=== PATIENT | female | born 1935 | race Caucasian/White ===

== ENCOUNTER 2016-12-30 15:21 | Inpatient (IN) | payer MEDICARE, OTHER ==
[~2016-12-30] VITALS: Ht 167.6 cm; Wt 92.0 kg
[~2016-12-30 15:21] MED LIST: ASPI-110 PO; CARB25TA9 PO; DONE10TA7 PO; FENO50TA PO; LEVO125T4 PO; MULT1TAB PO; NAME10TA PO; OMEG100010 PO; SERO25TA PO; VENL75TA PO; VITA2000 PO
[2017-01-02] MEDS ORDERED: BUPIVACAINE LIPOSOME PF 1.3% 20 ML VIAL ONE (09:12)
[2017-01-02] MEDS ORDERED: PROPOFOL 200 MG/20 ML AMP IV ONE (12:00)
[2017-01-02] MEDS ORDERED: ePHEDrine/NS 25 MG/5 ML SYR IV ONE (12:00)
[2017-01-02] MEDS ORDERED: LACTATED RINGER'S 1000 ML INJ 1,000 ML IV ONE (12:00)
[2017-01-02] MEDS ORDERED: POVIDONE IODINE 5% (ANTISEPSIS KIT) 4 APPLICATIONS EACH NARE PRN (12:45)
[2017-01-02] MEDS ORDERED: CHLORHEXIDINE GLUCONATE 2 % 1 PACK (2 CLOTHS) TOPICAL PRN (12:45)
[2017-01-02] MEDS ORDERED: METOPROLOL TARTRATE 25 MG TAB PO PRN (12:45)
[2017-01-02] MEDS ORDERED: ceFAZolin 2 GM PREMIX 50 ML IV SCH (12:45)
[2017-01-02] MEDS ORDERED: LACTATED RINGER'S 1000 ML IV PRN (12:45)
[2017-01-02] MEDS ORDERED: CHLORHEXIDINE GLUCONATE 4% SOLN 120 ML BTL TOPICAL SCH (12:45)
[2017-01-02] MEDS ORDERED: VANCOMYCIN 1000 MG/NS 250 ML (for <70 kg) IV SCH ×2 (12:45)
[2017-01-02] MEDS ORDERED: SODIUM CHLORID 0.9% 500 ML IV PRN (12:45)
[2017-01-02] MEDS ORDERED: INSULIN HUMAN REGULAR 1,000 UNITS/10 ML VIAL SQ PRN (12:45)
[2017-01-02] MEDS ORDERED: GENTAMICIN SULFATE 80 MG/2 ML VIAL ONE ×2 (12:47)
[2017-01-02] MEDS ORDERED: ROPIVACAINE PERI-ARTICULAR INJECTION. P-ARTICULR SCH ×5 (13:00)
[2017-01-02 13:08] VITALS: BP 142/69; PULSE 68; RESP 16; TEMP 98.5; O2SAT 96
[2017-01-02] MEDS ORDERED: ACETAMINOPHEN 1000 MG/100 ML VIAL IV ONE (13:51)
[2017-01-02] MEDS ORDERED: FAMOTIDINE 20 MG/2 ML VIAL ONE (13:51)
[2017-01-02] MEDS: LACTATED RINGER'S 1000 ML INJ 1,000 ML IV SCH (16:52)
[2017-01-02] MEDS ORDERED: DO NOT ADM ANY ANTICOAGULANT DRUGS PRN (16:56)
[2017-01-02] MEDS ORDERED: ALUMINUM/MAGNESIUM/SIMETH 30 ML CUP PO PRN (17:00)
[2017-01-02] MEDS ORDERED: ONDANSETRON HCL 4 MG/2 ML VIAL IVP PRN (17:00)
[2017-01-02] MEDS ORDERED: MORPHINE SULFATE 8 MG/ML INJ IM PRN (17:00)
[2017-01-02] MEDS ORDERED: ZOLPIDEM TARTRATE 5 MG TAB PO PRN (17:00)
[2017-01-02] MEDS ORDERED: ACETAMINOPHEN/HYDROcodone 325 MG/5 MG TAB PO PRN (17:00)
[2017-01-02] MEDS ORDERED: SODIUM CHLORIDE 0.9% FLUSH 5 ML FLUSH IVF PRN (17:00)
[2017-01-02] MEDS: CARBIDOPA/LEVODOPA 25 MG/100 MG TAB PO SCH ×3 (17:00→23:23)
[2017-01-02] MEDS ORDERED: Post-op Orders (for Pharmacy) MISC XX ONE (17:00)
--- NOTE | 2017-01-02 17:00 | HHI.FF ---
Face to Face Verification Diagnosis: (1) Osteoarthritis of right knee Physical Therapy Gait training, Transfer training, bed to chair Knee: Total knee, Protocol: Right, Full weight bearing Right LE Weight Bearing: WB as tolerated Left LE Weight Bearing: WB as tolerated Nursing RN: 3 days/week x 2 weeks Nursing: Dressing changes (clean incision with alcohol and apply dry sterile dressing ) Additional Instructions Pt/INR q Monday and . Call/text results to Yuki AHN [phone] Goal INR 1.5-1.8 I have seen patient Carmen Monaco on 01/02/17. My clinical findings support the need for the requested home health care services because: High risk of falls I certify that my clinical findings support that this patient is homebound because: Post-op weakness Ghassan Burgess MD Jan 02, 2017 17:00
[2017-01-02] MEDS ORDERED: CPMMACHINE (17:02)
[2017-01-02] MEDS ORDERED: WALKER WHEELS/F1 MIS (17:02)
[2017-01-02] MEDS ORDERED: BEDSIDE COMMODE1 MI1 (17:02)
--- NOTE | 2017-01-02 17:05 | HHI.PR ---
Immediate Post Op Note Procedure Date: Jan 02, 2017 Pre Op Diagnosis: R Knee Severe OA Post Op Diagnosis: Same Surgeon: Ghassan Burgess MD Bar Host(s): Yuki Levin PA-C Procedure: R TKR Complications: None Specimen(s) removed: None Estimated blood loss: 50cc Anesthesia: Regional Block, Spinal, Local Drains: Hemovac Tourniquet time (min at mmHg) 60 mins @ 250 mm Hg Patient to: PACU Patient Condition: Good Implant/Devices: SEE IMPLANT LOG (if applicable) Date/Time of Procedure: SEE SURGICAL CARE RECORD Ghassan Burgess MD Jan 02, 2017 17:05
--- NOTE | 2017-01-02 18:15 | RADRPT ---
EXAM DATE/TIME: 01/02/2017 17:25 [place] COMPARISON: No previous studies available for comparison. INDICATIONS : Post op right knee. MEDICAL HISTORY : None. SURGICAL HISTORY : None. ENCOUNTER: Initial ACUITY: 1 day PAIN SCORE: Non-responsive. LOCATION: Right knee. FINDINGS: AP and lateral views of the right knee demonstrate changes consistent with recent total knee arthropl asty with metallic hardware in place in the distal femur and proximal tibia. There is a radiolucent p atellar component. Skin china are present anteriorly. There is soft tissue gas present, as expected . A surgical drain is in place. CONCLUSION: Expected changes following right total knee arthroplasty. Reza Chan MD on January 02, 2017 at 18:12 Board Certified Radiologist. This report was verified electronically.
[2017-01-02 19:02] VITALS: BP 139/64; PULSE 68; RESP 16; TEMP 95.4; O2SAT 96
[2017-01-02] MEDS: ACETAMINOPHEN/HYDROcodone 325 MG/5 MG TAB PO PRN (19:55)
[2017-01-02] MEDS: SODIUM CHLORIDE 0.9% FLUSH 5 ML FLUSH IVF SCH (19:58)
[2017-01-02] MEDS: QUEtiapine FUMARATE 25 MG TAB PO SCH (19:58)
[2017-01-02] MEDS: MEMANTINE HCL 10 MG TAB PO SCH (19:59)
--- NOTE | 2017-01-02 22:14 | PD.CONS ---
HPI Service [facility] Hospitalists Consult Requested By Orthopedic surgery. Reason for Consult Medical management. Primary Care Physician Non-Staff Diagnoses: (1) Osteoarthritis of right knee (2) Parkinson's disease (3) Dementia (4) Hypothyroidism History of Present Illness Ms. Monaco is a pleasant 81 year old female with a history of hypothyroidism, hyperlipidemia, Parkinson's disease who underwent right total knee arthroplasty on 01/02/2017. Hospitalist service was consulted for medical management. While at PACU, patient had a short episode of Atrial fibrillation with RVR per RN. Patient was completely asymptomatic. Patient denies any history of Afib. She is followed by a side seam tender Dr. Ko in the outpatient setting. At the time of this interview, patient denies any cough, chest pain, shortness of breath, fever, chills. No changes in bowel or bladder habits. Review of Systems Except as stated in HPI: all other systems reviewed are Neg Past Family Social History Allergies: Coded Allergies: No Known Allergies (Unverified , 12/30/16) Past Medical History Parkinson's disease Dementia Hypothyroidism Hyperlipidemia Past Surgical History Appendectomy Thyroid surgery Cholecystectomy Family History No family history of Alzheimer's or Parkinson's. Social History Denies using tobacco, alcohol or illicit drugs. Physical Exam Vital Signs Vital Signs Date Time Temp Pulse Resp B/P Pulse Ox O2 Delivery O2 Flow Rate FiO2 01/02/17 19:02 95.4 68 16 139/64 96 01/02/17 18:30 68 12 124/58 98 Nasal Cannula 2 01/02/17 18:15 69 12 139/63 97 Nasal Cannula 2 01/02/17 18:00 70 12 140/56 97 Nasal Cannula 2 01/02/17 17:45 73 19 128/59 96 Nasal Cannula 2 01/02/17 17:30 73 15 140/63 98 Nasal Cannula 2 01/02/17 17:15 74 20 132/62 96 Nasal Cannula 2 01/02/17 17:00 75 17 128/60 96 Nasal Cannula 3 01/02/17 16:56 97.7 74 15 119/56 96 Nasal Cannula 3 01/02/17 13:08 98.5 68 16 142/69 96 Physical Exam GENERAL: This is a well-nourished, well-developed patient, in no apparent distress. SKIN: No rashes, ecchymoses or lesions. Warm and dry. HEAD: Atraumatic. Normocephalic. No temporal or scalp tenderness. EYES: Pupils equal round and reactive. No injection or drainage. ENT: Nose without bleeding, purulent drainage or septal hematoma. Airway patent. NECK: Trachea midline. No lymphadenopathy. Supple, nontender, no meningeal signs. CARDIOVASCULAR: Regular rate and rhythm without murmurs, gallops, or rubs. No JVD. RESPIRATORY: Clear to auscultation. Breath sounds equal bilaterally. No wheezes , rales, or rhonchi. GASTROINTESTINAL: Abdomen soft, non-tender, nondistended. No guarding. MUSCULOSKELETAL: Extremities without clubbing, cyanosis, or edema. s/p right total knee arthroplasty. NEUROLOGICAL: Awake and alert. Cranial nerves II through XII intact. No focal neurological deficits. Normal speech. Laboratory Laboratory Tests Test 01/02/17 01/02/17 13:00 13:08 Blood Type O NEGATIVE O NEGATIVE Antibody Screen NEGATIVE Crossmatch Leukocyte-Reduced Red Blood Cells Blood Bank Comment Imaging Last Impressions Knee X-Ray 01/02/17 1652 Signed Impressions: Service Date/Time: Monday, January 02, 2017 17:25 - CONCLUSION: Expected changes following right total knee arthroplasty. Reza Chan MD Assessment and Plan Assessment and Plan Ms. Monaco is a pleasant 81 year old female with a history of hypothyroidism, hyperlipidemia, Parkinson's disease who underwent right total knee arthroplasty on 01/02/2017. Hospitalist service was consulted for medical management. While at PACU, patient had a short episode of Atrial fibrillation with RVR per RN. Patient was completely asymptomatic. Patient denies any history of Afib. She is followed by a side seam tender Dr. Ko in the outpatient setting. - Right knee osteoarthritis - s/p right total knee arthroplasty. - [place] 5/325mg 1-2 tablets for pain PRN - Milk of Mag, Dulcolax supp PRN for bowel regimen. - Warfarin for DVT prophylaxis. - Possible Afib. - Patient had an episode of Afib in the PACU. - No previous history of Afib. - Will keep patient on Telemetry to detect paroxysmal Afib. - Also advised patient to discuss with her Cook Frozen Dessert. - If documented, patient will likely benefit from anti-coagulation meds such as Apixaban. - Parkinson's disease - Dementia - Continue Donepezil 10mg Qday. - Continue Memantine 10mg BID, Carbidopa-Levodopa 25-100 mg - probably Q8hrs not Q3hrs. - Will verify dosage with patient/ or patient's pharmacy. - Hypothyroidism - Continue Levothyroxine 125 mcg QAM. - Hyperlipidemia - continue Fenofibrate 145 mg PO Qday. Full code. Warfarin. Thank you for the consult. We will continue to follow this patient with you. Reinaldo Canales DO Jan 02, 2017 22:14
[2017-01-03] VITALS (9 sets, daily range): BP systolic 98–145; BP diastolic 46–78; PULSE 70–85; RESP 17–18; TEMP 96.7–98.7; O2SAT 92–99
[2017-01-03] MEDS ORDERED: BISACODYL 10 MG SUPP RECTAL PRN (01:00)
[2017-01-03] MEDS ORDERED: MAGNESIUM HYDROXIDE SUSP 30 ML CUP PO PRN (01:00)
[2017-01-03] MEDS: ACETAMINOPHEN/HYDROcodone 325 MG/5 MG TAB PO PRN ×4 (01:51→19:48)
[2017-01-03] MEDS: LACTATED RINGER'S 1000 ML INJ 1,000 ML IV SCH ×2 (05:22→17:43)
[2017-01-03] MEDS: CARBIDOPA/LEVODOPA 25 MG/100 MG TAB PO SCH ×3 (05:39→22:07)
[2017-01-03] MEDS: LEVOTHYROXINE SODIUM 125 MCG TAB PO SCH (05:39)
[2017-01-03 06:27] LABS: INTERNATIONAL NORMALIZED RATIO 1.1 RATIO; PROTHROMBIN TIME - PATIENT 12.5 SEC (9.8-11.6)
--- NOTE | 2017-01-03 07:18 | PD.ORT.PN ---
Subjective Subjective Remarks POD#1 R TKR C/O hallucinations last night;probably secondary from sleep depervation No sob;no chest pain Seen with Objective Vitals Vital Signs Date Time Temp Pulse Resp B/P Pulse Ox O2 Delivery O2 Flow Rate FiO2 01/03/17 04:07 97.2 73 18 119/55 95 01/03/17 00:40 98.3 72 17 98/46 94 01/02/17 19:02 95.4 68 16 139/64 96 01/02/17 18:30 68 12 124/58 98 Nasal Cannula 2 01/02/17 18:15 69 12 139/63 97 Nasal Cannula 2 01/02/17 18:00 70 12 140/56 97 Nasal Cannula 2 01/02/17 17:45 73 19 128/59 96 Nasal Cannula 2 01/02/17 17:30 73 15 140/63 98 Nasal Cannula 2 01/02/17 17:15 74 20 132/62 96 Nasal Cannula 2 01/02/17 17:00 75 17 128/60 96 Nasal Cannula 3 01/02/17 16:56 97.7 74 15 119/56 96 Nasal Cannula 3 01/02/17 13:08 98.5 68 16 142/69 96 I/O 01/02/17 01/02/17 01/02/17 01/03/17 01/03/17 01/03/17 07:00 15:00 23:00 07:00 15:00 23:00 Intake Total 1480 ml 480 ml Output Total 300 ml Balance 1180 ml 480 ml Intake Oral 480 ml 480 ml Other 1000 ml Output Urine Total 250 ml Estimated Blood Loss 50 ml # Voids 1 2 # Bowel Movements 0 0 Other Results Laboratory Tests Test 01/03/17 06:08 Prothrombin Time 12.5 SEC (9.8-11.6) Prothromb Time International 1.1 RATIO Ratio Imaging Last 24 hours Impressions Knee X-Ray 01/02/17 1652 Signed Impressions: Service Date/Time: Monday, January 02, 2017 17:25 - CONCLUSION: Expected changes following right total knee arthroplasty. Reza Chan MD Objective Remarks Dressings dry N/V intact Neg gwen's;no calf tenderness Assessment & Plan Assessment and Plan Patient alert this AM PT,Rehab Coumadin,TEDS,Sequentials for DVT prophylaxsis Ortho stable Ghassan Burgess MD Jan 03, 2017 07:18
[2017-01-03] MEDS: SODIUM CHLORIDE 0.9% FLUSH 5 ML FLUSH IVF SCH ×2 (09:00→19:48)
[2017-01-03] MEDS: VENLAFAXINE HCL XR 75 MG CAP PO SCH (09:02)
[2017-01-03] MEDS: FENOFIBRATE 145 MG TAB PO SCH (09:02)
[2017-01-03] MEDS: MEMANTINE HCL 10 MG TAB PO SCH ×2 (09:02→19:48)
[2017-01-03] MEDS: DONEPEZIL HCL 5 MG TAB PO SCH (09:02)
--- NOTE | 2017-01-03 12:50 | MP ---
cc: VINEET BURGESS M.D., MD,LOPEZ GRAHAM MD,CHAR DATE OF SURGERY 01/02/2017 PREOPERATIVE DIAGNOSIS Right knee severe tricompartmental osteoarthritis. POSTOPERATIVE DIAGNOSIS Right knee severe tricompartmental osteoarthritis. PROCEDURE Right total knee arthroplasty - cemented Biomet Vanguard. SURGEON Gianni Burgess MD AIRCRAFT SERVICER Yuki Levin PA-C ESTIMATED BLOOD LOSS 50 cc SPECIMEN None. COMPLICATIONS None. ANESTHESIA Spinal, regional abductor canal block, local intracapsular anesthesia DRAINS Two. TOURNIQUET TIME 60 minutes at 20 mmHg. CONDITION Stable. PLAN OF ACTIVITY. As per orders. PROCEDURE My administrative assistant coordinator Yuki Levin PA-C, was present for the entire surgical case. She was medically necessary for the entire case because of the complexity of the case and to facilitate the performance of the procedure. The ELECTRICAL TROUBLESHOOTER at the back table not of the skill set for this case to manipulate the instruments e.g. the multiple different soft tissue retractors, trial implants, permanent implants including bone cement. The patient was brought into the operating room and had satisfactory anesthesia by the Department of Anesthesia. The right lower extremity was prepped and draped in the usual sterile manner. The extremity was exsanguinated by elevation and the tourniquet inflated to 250 mmHg. Anterior medial exposure of the knee was made. All bleeders were then coagulated. Dissection continued through the subcutaneous tissue. On Inspection of the knee joint, the patient was found to have severe tricompartmental osteoarthritis. The patient had significant ridges and "grooves" involving the patellofemoral compartment. The remaining portion of the medial and lateral meniscus were removed. Osteophytes off the patella were removed. The remaining part of the medial and lateral meniscus were removed. The remaining portion of anterior cruciate ligament was removed. Prepatellar fat pad was excised. Using the Biomet total knee arthroplasty Vanguard system, IM guide was used on the distal femur to accept a 62.5-mm right femoral component. Extramedullary guide was used for the tibia to accept a 71-mm tibial component. The undersurface of the patella was removed to accept the 31-mm, three-pronged patellar prosthesis. A 12-mm insert was used. The patient found to have excellent balance with flexion and extension. All trial components were removed and preparation for cementing was made. The knee was injected with 100 cc of local anesthesia provided by the Pharmacy Department. The knee was prepared for cementing. Two packages of [place] bone cement by [employer] was used. First the tibial component was cemented which is a 71-mm tibial component, followed by the femoral component which was a 62.5-mm femoral component and then the patella was cemented which is a 31-mm three-pronged patellar prosthesis. The bone cement was allowed to harden for 13 minutes. All excess bone cement was removed. A 12 x 31 mm polyethylene plastic was assembled onto the tibial tray with the appropriate clipping mechanism. The tourniquet was deflated. All bleeders were then coagulated. The wound was irrigated with 4000 cc of sterile saline antibiotic solution. The wound was closed over two Hemovac drains, hooked up to an Autovac type system. The wound was closed in multiple layers using #2 Ticron suture for the capsule, 0 Vicryl and 2-0 Vicryl. The skin was approximated with stainless steel china. Xeroform gauze and sterile dressing were applied. The patient tolerated the procedure well and arrived in the recovery room in stable and satisfactory condition. MD SHELLY Palmer/KEELEY /4:54 PM /12:36 PM
[2017-01-03] MEDS ORDERED: WARFARIN SOD 5 MG TAB PO SCH (16:00)
--- NOTE | 2017-01-03 19:27 | HHI.PR ---
Subjective Remarks Follow up for right knee osteoarthritis, Parkinson's. Patient is s/p right TKA. Currently doing well. However, she could not get much sleep last night. Denies any chest pain, shortness of breath, fever, chills. Telemetry shows no evidence of Afib. Objective Vitals Vital Signs Date Time Temp Pulse Resp B/P Pulse Ox O2 Delivery O2 Flow Rate FiO2 01/03/17 16:00 98.3 78 18 128/62 96 01/03/17 12:51 80 01/03/17 12:00 97.0 70 18 107/58 99 01/03/17 09:51 96 21 01/03/17 08:00 98.7 85 18 145/73 95 01/03/17 04:07 97.2 73 18 119/55 95 01/03/17 00:40 98.3 72 17 98/46 94 I/O 01/02/17 01/02/17 01/02/17 01/03/17 01/03/17 01/03/17 06:59 14:59 22:59 06:59 14:59 22:59 Intake Total 1480 ml 480 ml 600 ml Output Total 300 ml Balance 1180 ml 480 ml 600 ml Intake Oral 480 ml 480 ml 600 ml Other 1000 ml Output Urine Total 250 ml Estimated Blood Loss 50 ml # Voids 1 2 2 # Bowel Movements 0 0 0 Imaging Last Impressions Knee X-Ray 01/02/17 1652 Signed Impressions: Service Date/Time: Monday, January 02, 2017 17:25 - CONCLUSION: Expected changes following right total knee arthroplasty. Reza Chan MD Objective Remarks GENERAL: Alert, NAD. SKIN: Warm and dry. HEAD: Normocephalic. EYES: No scleral icterus. No injection or drainage. NECK: Supple, trachea midline. No JVD or lymphadenopathy. CARDIOVASCULAR: Regular rate and rhythm without murmurs, gallops, or rubs. RESPIRATORY: Breath sounds equal bilaterally. No accessory muscle use. GASTROINTESTINAL: Abdomen soft, non-tender, nondistended. MUSCULOSKELETAL: No cyanosis, or edema. s/p right TKA. BACK: Nontender without obvious deformity. No CVA tenderness. Procedures 01/02/2017 Right Total Knee Arthroplasty. A/P Problem List: (1) Osteoarthritis of right knee ICD Code: M17.11 Status: Acute (2) Parkinson's disease ICD Code: G20 Status: Acute (3) Dementia ICD Code: F03.90 Status: Acute (4) Hypothyroidism ICD Code: E03.9 Status: Acute Assessment and Plan Ms. Monaco is a pleasant 81 year old female with a history of hypothyroidism, hyperlipidemia, Parkinson's disease who underwent right total knee arthroplasty on 01/02/2017. Hospitalist service was consulted for medical management. While at PACU, patient had a short episode of Atrial fibrillation with RVR per RN. Patient was completely asymptomatic. Patient denies any history of Afib. She is followed by a skin grader Dr. Ko in the outpatient setting. - Right knee osteoarthritis - s/p right total knee arthroplasty. - [place] 5/325mg 1-2 tablets for pain PRN - Milk of Mag, Dulcolax supp PRN for bowel regimen. - Warfarin for DVT prophylaxis. - Suspected Afib. - Patient had an episode of Afib in the PACU. - No previous history of Afib. - No evidence of Afib on telemetry. - Also advised patient to discuss with her Checker/Stocker in the outpatient setting. - Parkinson's disease - Dementia - Continue Donepezil 10mg Qday. - Continue Memantine 10mg BID, Carbidopa-Levodopa 25-100 mg - Q8hrs. - Hypothyroidism - Continue Levothyroxine 125 mcg QAM. - Hyperlipidemia - continue Fenofibrate 145 mg PO Qday. Full code. Warfarin. Reinaldo Canales DO Jan 03, 2017 19:27
[2017-01-03] MEDS: QUEtiapine FUMARATE 25 MG TAB PO SCH (19:47)
[2017-01-04 04:29] VITALS: BP 125/59; PULSE 76; RESP 18; TEMP 97.4; O2SAT 95
[2017-01-04 05:49] LABS: HEMATOCRIT 31.1 % (35.0-46.0); REVIEW FLAG FINAL
[2017-01-04 05:50] LABS: INTERNATIONAL NORMALIZED RATIO 1.3 RATIO; PROTHROMBIN TIME - PATIENT 14.4 SEC (9.8-11.6)
[2017-01-04] MEDS: CARBIDOPA/LEVODOPA 25 MG/100 MG TAB PO SCH (06:18)
[2017-01-04] MEDS: LEVOTHYROXINE SODIUM 125 MCG TAB PO SCH (06:18)
[2017-01-04] MEDS: ACETAMINOPHEN/HYDROcodone 325 MG/5 MG TAB PO PRN ×2 (06:19→10:22)
[2017-01-04 07:49] VITALS: BP 109/56; PULSE 82; RESP 18; TEMP 96.4; O2SAT 96
--- NOTE | 2017-01-04 07:51 | HHI.PR ---
Subjective Remarks Follow up for right knee osteoarthritis, Parkinson's, s/p right TKA. Patient seen and examined sitting in wheelchair in no apparent distress, at bedside. Patient denies any new acute complaints overnight. Denies any recent fever, chills, headache, chest pain, cough, shortness of breath, abdominal pain , nausea, vomiting, diarrhea, or dysuria. Plan is to go to [facility] inpatient rehab today. Afebrile. Vitals stable. Telemetry showing no evidence of atrial fibrillation. Objective Vitals Vital Signs Date Time Temp Pulse Resp B/P Pulse Ox O2 Delivery O2 Flow Rate FiO2 01/04/17 04:29 97.4 76 18 125/59 95 01/03/17 23:42 96.7 76 17 111/50 92 01/03/17 19:39 96.7 80 18 142/78 98 01/03/17 16:00 98.3 78 18 128/62 96 01/03/17 12:51 80 01/03/17 12:00 97.0 70 18 107/58 99 01/03/17 09:51 96 21 01/03/17 08:00 98.7 85 18 145/73 95 I/O 01/03/17 01/03/17 01/03/17 01/04/17 01/04/17 01/04/17 07:00 15:00 23:00 07:00 15:00 23:00 Intake Total 480 ml 600 ml 360 ml 240 ml Balance 480 ml 600 ml 360 ml 240 ml Intake Oral 480 ml 600 ml 360 ml 240 ml # Voids 2 2 3 1 # Bowel Movements 0 0 0 0 Result Diagram: 01/04/17 0517 Imaging Last Impressions Knee X-Ray 01/02/17 1652 Signed Impressions: Service Date/Time: Monday, January 02, 2017 17:25 - CONCLUSION: Expected changes following right total knee arthroplasty. Reza Chan MD Objective Remarks GENERAL: Alert, NAD. SKIN: Warm and dry. HEAD: Normocephalic. EYES: No scleral icterus. No injection or drainage. NECK: Supple, trachea midline. No JVD or lymphadenopathy. CARDIOVASCULAR: Regular rate and rhythm without murmurs, gallops, or rubs. RESPIRATORY: Breath sounds equal bilaterally. No accessory muscle use. GASTROINTESTINAL: Abdomen soft, non-tender, nondistended. MUSCULOSKELETAL: No cyanosis, or edema. s/p right TKA. BACK: Nontender without obvious deformity. No CVA tenderness. Procedures 01/02/2017 Right Total Knee Arthroplasty. A/P Problem List: (1) Osteoarthritis of right knee ICD Code: M17.11 Status: Chronic (2) Parkinson's disease ICD Code: G20 Status: Chronic (3) Dementia ICD Code: F03.90 Status: Chronic (4) Hypothyroidism ICD Code: E03.9 Status: Chronic Assessment and Plan Ms. Monaco is a pleasant 81 year old female with a history of hypothyroidism, hyperlipidemia, Parkinson's disease who underwent right total knee arthroplasty on 01/02/2017. Hospitalist service was consulted for medical management. While at PACU, patient had a short episode of Atrial fibrillation with RVR per RN. Patient was completely asymptomatic. Patient denies any history of Afib. She is followed by a environmental construction engineer Dr. Ko in the outpatient setting. Right knee osteoarthritis - s/p right total knee arthroplasty. - [place] 5/325mg 1-2 tablets for pain PRN - Milk of Mag, Dulcolax supp PRN for bowel regimen. - Warfarin for DVT prophylaxis. Suspected Afib. - Patient had an episode of Afib in the PACU. - No previous history of Afib. - No evidence of Afib on telemetry. - Also advised patient to discuss with her Cocktail Waitress in the outpatient setting. Parkinson's disease Dementia - Continue Donepezil 10mg Qday. - Continue Memantine 10mg BID, Carbidopa-Levodopa 25-100 mg - Q8hrs. Hypothyroidism: Continue Levothyroxine 125 mcg QAM. Hyperlipidemia: Continue Fenofibrate 145 mg PO Qday. DVT Prophylaxis: Warfarin. Full code. Discharge Planning [facility]. Reinaldo Canales DO Jan 04, 2017 07:51 Aida Adorno Jan 04, 2017 12:22
--- NOTE | 2017-01-04 07:52 | PD.ORT.PN ---
Subjective Subjective Remarks pt sleepy complains of post op knee pain Objective Vitals Vital Signs Date Time Temp Pulse Resp B/P Pulse Ox O2 Delivery O2 Flow Rate FiO2 01/04/17 04:29 97.4 76 18 125/59 95 01/03/17 23:42 96.7 76 17 111/50 92 01/03/17 19:39 96.7 80 18 142/78 98 01/03/17 16:00 98.3 78 18 128/62 96 01/03/17 12:51 80 01/03/17 12:00 97.0 70 18 107/58 99 01/03/17 09:51 96 21 01/03/17 08:00 98.7 85 18 145/73 95 I/O 01/03/17 01/03/17 01/03/17 01/04/17 01/04/17 01/04/17 07:00 15:00 23:00 07:00 15:00 23:00 Intake Total 480 ml 600 ml 360 ml 240 ml Balance 480 ml 600 ml 360 ml 240 ml Intake Oral 480 ml 600 ml 360 ml 240 ml # Voids 2 2 3 1 # Bowel Movements 0 0 0 0 Result Diagram: 01/04/1717 Other Results Laboratory Tests Test 01/04/17 05:17 Prothrombin Time 14.4 SEC (9.8-11.6) Prothromb Time International 1.3 RATIO Ratio Imaging Last 24 hours Impressions Knee X-Ray 01/02/17 1652 Signed Impressions: Service Date/Time: Monday, January 02, 2017 17:25 - CONCLUSION: Expected changes following right total knee arthroplasty. Reza Chan MD Objective Remarks in room right knee dressing dry and intact +NVI Neg gwen's;no calf tenderness Assessment & Plan Assessment and Plan POD # 2 s/p R TKA discussion with patient and that patient may need to go to [facility] instead of home cardiology following due to A. Fib during surgery currently has monitor on questioning carbidopa dosage and why q8hrs not q3hrs - defer to medical physician on dosing PT,Rehab Coumadin,TEDS,Sequentials for DVT proph. anticipate d/c tomorrow, most likely [facility] unless patient can safely go home with [facility] Ortho stable Yuki Levin Jan 04, 2017 07:52
[2017-01-04] MEDS: MEMANTINE HCL 10 MG TAB PO SCH (08:39)
[2017-01-04] MEDS: VENLAFAXINE HCL XR 75 MG CAP PO SCH (08:39)
[2017-01-04] MEDS: DONEPEZIL HCL 5 MG TAB PO SCH (08:40)
[2017-01-04] MEDS: FENOFIBRATE 145 MG TAB PO SCH (08:40)
[2017-01-04] MEDS ORDERED: SINE25TA PO ×3 (08:51→13:19)
[2017-01-04] MEDS ORDERED: COUM1TAB PO (09:01)
[2017-01-04] MEDS ORDERED: NORC5TAB PO (12:18)
--- NOTE | 2017-01-09 10:05 | HHI.DS ---
Discharge Summary Admission Date Jan 02, 2017 at 12:10 Discharge Date: Jan 04, 2017 Admitting Diagnosis Right knee osteoarthritis Diagnosis: (1) Osteoarthritis of right knee Diagnosis: Principal Procedures R TKA Brief History This is a 81 year old female patient who presents with the following history. Patient has had bilateral knee pain for some years. She has tried assistive ambulation, Meloxicam anti-inflammatory, intra-articular steroid injections, bracing, therapy etc. Patient was reluctant to proceed forward with surgical intervention with her history of Parkinson's Disease and Dementia. Her knee pain progressed to the point that she was hardly able to ambulate and decided it was necessary that she proceed forward with surgical intervention. Imaging x-rays of the right knee show severe tri compartment osteoarthritis with joint space narrowing PE at Discharge in room right knee dressing dry and intact +NVI Neg gwen's;no calf tenderness Hospital Course Patient underwent satisfactory anaesthesia by the dept of anaesthesia which consisted of regional and local anaesthsia. She underwent right total knee arthroplasty on the date of admission. She did go into A. Fib during the procedure and was placed on a heart monitor for 24 hours after her procedure and was followed by cardiology. She did well with her right knee following the procedure. She was treated with low dose coumadin night before procedure and will continue with low dose coumadin for four weeks post operatively to try and prevent DVT. She was started with physical therapy full weight bearing and CPM machine on pod #1. She was also treated with knee high TEDs and sequentials during her stay. She was followed by medical for further evaluation of medical co-morbidities. She progressed well and was discharged to inpatient rehab for further nursing and therapy on pod #2 in stable condition. Pt Condition on Discharge: Stable Discharge Disposition: Rehab Inpatient Discharge Instructions Diet Instructions: Coumadin (Warfarin) Diet Activities You Can Perform: Weight Bearing as Yuki Cason Jan 09, 2017 10:05
[2017-01-09] MEDS ORDERED: TRANSPORT CHAIR1 MIS (13:39)
[2017-01-11] MEDS ORDERED: HYDR-3516 PO (08:48)
[2017-01-11] MEDS ORDERED: VITA1000 PO (09:46)
[2017-01-11] MEDS ORDERED: NAME10TA PO (09:46)
[2017-01-11] MEDS ORDERED: LEVA250T14 PO (09:46)
[2017-01-11] MEDS ORDERED: AMLO5 PO (09:46)
[2017-01-11] MEDS ORDERED: ARIC5TAB2 PO (09:46)
[2017-01-11] MEDS ORDERED: VENL75XR PO (09:46)
[2017-01-11] MEDS ORDERED: LEVO.125 PO (09:46)
[2017-01-11] MEDS ORDERED: QUET1TAB7 PO (09:46)
[2017-01-11] MEDS ORDERED: ACET1TAB86 PO (09:46)
[2017-01-11] MEDS ORDERED: COUM3TAB PO (09:46)
[2017-01-11] MEDS ORDERED: FENO145T2 PO (09:46)
[2017-01-11] MEDS ORDERED: CARB25TA9 PO (09:46)
[2017-01-11] MEDS ORDERED: SENN1TAB PO (09:46)
[2017-01-11] MEDS ORDERED: GNP5TAB6 PO (09:46)
== END 2017-01-04 11:11 | DRG 470 ==
LOC: HSDI 01-02 12:10 → N06A 01-02 18:45
PROVIDERS: ADMIT Orthopaedic Surgery Orthopaedic Surgery of the Spine; ATTEND Orthopaedic Surgery Orthopaedic Surgery of the Spine
PROC: 3E0T3CZ (ICD-10-PCS; 2017-01-02)
PROC: 0SRC0J9 Replacement of Right Knee Joint with Synthetic Substitute, Cemented, Open Approach (ICD-10-PCS; principal; 2017-01-02 14:34)
DX: M17.11 Unilateral primary osteoarthritis, right knee (principal); G20 Parkinson's disease; F02.80 Dementia in other diseases classified elsewhere, unspecified severity, without behavioral disturbance, psychotic disturbance, mood disturbance, and anxiety; R44.3 Hallucinations, unspecified; E03.9 Hypothyroidism, unspecified; E78.5 Hyperlipidemia, unspecified; I48.0 Paroxysmal atrial fibrillation; Z72.820 Sleep deprivation
CPT/HCPCS: 73560; 85014; 85018; 85610; 86850; 86900; 86901; 86920; 94150; C1776; C9290; J0131; J0171; J0690; J0735; J1580; J1885; J2795; J3010; J3370; J7050; J7120; L1830

== ENCOUNTER 2018-04-24 14:06 | Observation (INO) ==
[2018-04-24] MEDS ORDERED: Sodium Chlor 0.9% Inj 500 ML IV.SIG ONE (14:20)
--- NOTE | 2018-04-24 14:55 | ED ---
HPI General Chief Complaint: Altered Mental Status Stated Complaint: Psych Eval/VCSO Time Seen by Provider: 04/24/18 14:08 Source: patient and RN notes reviewed Mode of arrival: EMS Limitations: altered mental status History of Present Illness HPI narrative: 82-year-old female presents to the emergency department via EMS under [place] act by local police. According to EMS, she fell out of bed last night. She got up sleeping on the floor during the night. She has been confused and told her that she wanted a gun to kill herself. Please were called and she was placed under a [place] act. The patient is confused. She is alert and oriented to person only. The patient screams a few manipulate her right wrist. I did speak to the who states that she has been way out of touch with reality and confused for the past 2-3 days. He states that she is normally slightly confused, but is been much worse than normal. He suspects that she has a UTI. He states that she was confused like this a couple years ago was diagnosed with a UTI and osteomyelitis of her foot. She underwent surgery. He also states that she was admitted to [facility] in June 2017 for pneumonia and had a 16-day stay. She does have history of dementia/Alzheimer's and Parkinson's disease. He states that she did fall out of bed last night. He tried to get her back into bed but could not so she wound up sleeping on the floor. He also states that she had a fall couple of days ago where she injured her right arm. Moderate severity. MD complaint: Reports altered mental status and confusion Onset (ago): day(s) (2-3) Timing confirmed by: spouse Severity: moderate Consistency of symptoms: constant Context: Reports unknown Associated symptoms: Reports denies other symptoms Treatments prior to arrival: Reports glucose Related Data Home Medications Medication Instructions Recorded Confirmed aspirin [Ecotrin Low Strength] 81 mg PO QPM 04/24/18 04/24/18 carbidopa-levodopa [Sinemet CR] 1 tab PO Q8H 04/24/18 04/24/18 cholecalciferol (vitamin D3) 2,000 unit PO DAILY 04/24/18 04/24/18 [Vitamin D3] d-mannose 1 tsp PO BID 04/24/18 04/24/18 fenofibrate nanocrystallized 145 mg PO DAILY 04/24/18 04/24/18 gabapentin 100 mg PO TID 04/24/18 04/24/18 levothyroxine 125 mcg PO DAILY 04/24/18 04/24/18 memantine-donepezil [Namzaric] 1 cap PO QPM 04/24/18 04/24/18 lrjuwlhc-zlz-ZL-lycopen-lutein 1 tab PO QPM 04/24/18 04/24/18 [Centrum Silver] oxybutynin chloride 10 mg PO DAILY 04/24/18 04/24/18 quetiapine [Seroquel] 50 mg PO HS 04/24/18 04/24/18 sennosides-docusate sodium 1 tab PO DAILY 04/24/18 04/24/18 [Senna-S] venlafaxine 150 mg PO HS 04/24/18 04/24/18 Allergies Allergy/AdvReac Type Severity Reaction Status Date / Time No Known Allergies Allergy Verified 04/24/18 14:36 Review of Systems ROS: all other systems reviewed are negative PMFSH Social History Social History Substance History: Unable to Obtain Smoking Status: Unknown if ever smoked How Often Do You Have a Drink Containing Alcohol: Unable to Obtain Recent Travel in [facility] within the Last 8 Weeks: No Recent Out of Country Travel within the Last 8 Weeks: No Immunization History Tetanus Immunization: Unable to Assess Exam Narrative Exam Narrative: GENERAL: Well-nourished, well-developed elderly patient, afebrile. SKIN: Focused skin assessment warm/dry. HEAD: Normocephalic. Atraumatic EYES: No scleral icterus. No injection or drainage. NECK: Supple, trachea midline. No JVD or lymphadenopathy. CARDIOVASCULAR: Regular rate and rhythm without murmurs, gallops, or rubs. RESPIRATORY: Breath sounds equal bilaterally. No accessory muscle use. Lung sounds are clear to auscultation GASTROINTESTINAL: Abdomen soft, non-tender, nondistended. MUSCULOSKELETAL: No cyanosis, or edema. Patient screams when you palpate her right wrist. No other bony point tenderness. Patient moves all extremities. She does not follow commands. BACK: Nontender without obvious deformity. No CVA tenderness. Course Initial Documented Vital Signs Temperature 98.0 F 04/24/18 14:32 Pulse Rate 72 04/24/18 14:32 Respiratory Rate 20 04/24/18 14:32 Blood Pressure 132/95 H 04/24/18 14:32 Pulse Oximetry 99 04/24/18 14:32 Last Documented Vital Signs Temperature 98.0 F 04/24/18 14:32 Pulse Rate 84 04/24/18 17:51 Respiratory Rate 16 04/24/18 17:51 Blood Pressure 170/65 H 04/24/18 17:51 Pulse Oximetry 96 04/24/18 17:51 Medical Decision Making MDM Narrative Medical decision making narrative: 82-year-old female presents to the emergency department under [place] act by local police. Patient is altered on my exam. According to her , she is more confused than normal. Patient is agitated , combative, unable to get IV access due to this. Patient is given Ativan 1 mg IM. IV access is obtained. EKG, CBC, CMP, TSH, CK, troponin, lactic acid, PTT , PT/INR, UA, alcohol level are ordered and pending. Patient is given normal saline 500 male bolus. X-ray of the chest, right wrist, right forearm are ordered and pending. CT of the brain and cervical spine are ordered and pending. EKG shows sinus rhythm, heart rate 89, no acute ST changes. CBC shows no acute abnormality. CMP shows hyperkalemia 8.4, normal BUN and creatinine. TSH is 0.429. CK is 417. Troponin is less than 0.02. Lactic acid is 2.0. PTT is 24.4. Pt/INR is 10.9/1.1. UA is negative for acute infection. Alcohol level is less than 3. Chest x-ray shows no acute intrathoracic disease. X-ray of the right wrist shows no acute fracture or joint dislocation. X-ray of the right forearm is unremarkable. CT of the brain shows no acute intracranial abnormality. CT of the cervical spine shows degenerative changes without fracture/subluxation. Stat potassium is ordered and pending. Repeat potassium is 3.5. Upon receiving new potassium level, clinical lab specialist called and stated the first potassium was put in error and it was actually 3.7. qa tech stated he would change result to 3.7. Hospitalist is paged for admission. Dr. Mathis accepted admission. Medical Screen Exam Complete: Yes Emergency Medical Condition: Yes Differential Diagnosis Differential Diagnosis: UTI versus sepsis versus pneumonia versus intracranial abnormality versus electrolyte abnormality versus dementia Medical Records Medical records reviewed: Yes I reviewed the patient's medical records. Lab Data Result diagrams: 10/09/18 15:45 04/24/18 18:20 Lab Results 04/24/18 04/24/18 04/24/18 Range/Units 15:45 15:45 15:45 WBC 9.3 (4.0-11.0) th/mm3 RBC 4.46 (4.00-5.30) mil/mm3 Hgb 14.4 (11.6-15.3) gm/dL Hct 43.7 (35.0-46.0) % MCV 98.0 (80.0-100.0) fL MCH 32.2 (27.0-34.0) pg MCHC 32.9 (32.0-36.0) % RDW 13.1 (11.6-17.2) % Plt Count 260 (150-450) th/mm3 MPV 9.2 (7.0-11.0) fL Neut % (Auto) 73.6 H (16.0-70.0) % Lymph % (Auto) 15.3 (9.0-44.0) % Clinch % (Auto) 10.6 H (0.0-8.0) % Eos % (Auto) 0.3 (0.0-4.0) % Baso % (Auto) 0.2 (0.0-2.0) % Neut # (Auto) 6.9 (1.8-7.7) th/mm3 Lymph # (Auto) 1.4 (1.0-4.8) th/mm3 Clinch # (Auto) 1.0 H (0.0-0.9) th/mm3 Eos # (Auto) 0.0 (0.0-0.4) th/mm3 Baso # (Auto) 0.0 (0.0-0.2) th/mm3 WBC Differential . Differential Comment Auto diff final PT 10.9 (9.8-11.6) sec INR 1.1 Ratio APTT 24.4 (24.3-30.1) sec Sodium (136-145) meq/L Potassium (3.5-5.1) meq/L Chloride (98-107) meq/L Carbon Dioxide (21.0-32.0) meq/L Anion Gap (5-15) meq/L BUN (7-18) mg/dL Creatinine (0.50-1.00) mg/dL Estimated GFR (>89) mL/min Random Glucose (74-106) mg/dL Lactic Acid 2.0 (0.4-2.0) mmol/L Calcium (8.5-10.1) mg/dL Total Bilirubin (0.2-1.0) mg/dL AST (15-37) U/L ALT (10-53) U/L Alkaline Phosphatase (45-117) U/L Total Creatine Kinase (26-192) U/L CK-MB (CK-2) (0.5-3.6) ng/mL CK-MB (CK-2) % (0.0-4.0) % Troponin I (0.02-0.05) ng/mL Total Protein (6.4-8.2) g/dL Albumin (3.4-5.0) g/dL TSH (0.358-3.740) uIU/mL Urine Color (Yellw/Straw) Urine Clarity (Clear) Urine pH (5.0-8.5) Ur Specific [place] (1.002-1.035) Urine Protein (Neg-Trace) mg/dL Urine Glucose (UA) (Negative) mg/dL Urine Ketones (Negative) mg/dL Urine Occult Blood (Negative) Urine Nitrate (Negative) Urine Bilirubin (Negative) Urine Urobilinogen (Less than 2) mg/dL Ur Leukocyte Esterase (Negative) Urine RBC (0-3) /hpf Urine WBC (0-5) /hpf Urine Mucus (Occasional) /lpf Micro UA Comment Ur Microscopic Review Urine Culture Comments Serum Alcohol (0-5) mg/dL 04/24/18 04/24/18 04/24/18 Range/Units 16:00 17:00 18:20 WBC (4.0-11.0) th/mm3 RBC (4.00-5.30) mil/mm3 Hgb (11.6-15.3) gm/dL Hct (35.0-46.0) % MCV (80.0-100.0) fL MCH (27.0-34.0) pg MCHC (32.0-36.0) % RDW (11.6-17.2) % Plt Count (150-450) th/mm3 MPV (7.0-11.0) fL Neut % (Auto) (16.0-70.0) % Lymph % (Auto) (9.0-44.0) % Clinch % (Auto) (0.0-8.0) % Eos % (Auto) (0.0-4.0) % Baso % (Auto) (0.0-2.0) % Neut # (Auto) (1.8-7.7) th/mm3 Lymph # (Auto) (1.0-4.8) th/mm3 Clinch # (Auto) (0.0-0.9) th/mm3 Eos # (Auto) (0.0-0.4) th/mm3 Baso # (Auto) (0.0-0.2) th/mm3 WBC Differential Differential Comment PT (9.8-11.6) sec INR Ratio APTT (24.3-30.1) sec Sodium 138 (136-145) meq/L Potassium 3.7 3.5 (3.5-5.1) meq/L Chloride 112 H (98-107) meq/L Carbon Dioxide 21.0 (21.0-32.0) meq/L Anion Gap 5 (5-15) meq/L BUN 12 (7-18) mg/dL Creatinine 0.74 (0.50-1.00) mg/dL Estimated GFR 75 L (>89) mL/min Random Glucose 82 (74-106) mg/dL Lactic Acid (0.4-2.0) mmol/L Calcium 7.9 L (8.5-10.1) mg/dL Total Bilirubin 0.8 (0.2-1.0) mg/dL AST 28 (15-37) U/L ALT 24 (10-53) U/L Alkaline Phosphatase 67 (45-117) U/L Total Creatine Kinase 417 H (26-192) U/L CK-MB (CK-2) 1.3 (0.5-3.6) ng/mL CK-MB (CK-2) % 0.3 (0.0-4.0) % Troponin I Less than 0.02 L (0.02-0.05) ng/mL Total Protein 7.4 (6.4-8.2) g/dL Albumin 2.9 L (3.4-5.0) g/dL TSH 0.429 (0.358-3.740) uIU/mL Urine Color Tori (Yellw/Straw) Urine Clarity Clear (Clear) Urine pH 5.0 (5.0-8.5) Ur Specific [place] 1.025 (1.002-1.035) Urine Protein Negative (Neg-Trace) mg/dL Urine Glucose (UA) Negative (Negative) mg/dL Urine Ketones Trace H (Negative) mg/dL Urine Occult Blood Negative (Negative) Urine Nitrate Negative (Negative) Urine Bilirubin Negative (Negative) Urine Urobilinogen 2.0 H (Less than 2) mg/dL Ur Leukocyte Esterase Negative (Negative) Urine RBC 1 (0-3) /hpf Urine WBC 1 (0-5) /hpf Urine Mucus Few H (Occasional) /lpf Micro UA Comment Cath-culture not ind Ur Microscopic Review Not Reportable Urine Culture Comments Cath-cult not ind Serum Alcohol Less than 3 (0-5) mg/dL Imaging Data Radiologist's impression: Cervical Spine CT 04/24/18 14:18 CONCLUSION: 1. Degenerative changes without fracture/subluxation. Chest X-Ray 04/24/18 14:18 CONCLUSION: No acute intrathoracic disease. Forearm X-Ray 04/24/18 14:18 CONCLUSION: Unremarkable exam for patient's age. Head CT 04/24/18 14:18 CONCLUSION: 1. No acute intracranial abnormality. . Wrist X-Ray 04/24/18 14:18 CONCLUSION: There is osteopenia and some mild degenerative changes involving the first carpometacarpal joint. No acute fracture or joint dislocation. Discharge Plan Discharge Disposition Patient Disposition: 30 Still Patient Discharge Details Diagnosis: Altered mental status Physicians Team ED Provider: German Sagastume ED Midlevel Provider: Mirella Aguila Primary Care Provider: UNKNOWN, Rxs /Orders / Referrals /Forms Prescriptions: No Action oxybutynin chloride 10 mg Tablet Extended Release 24hr 10 mg PO DAILY RF: 0 carbidopa-levodopa [Sinemet CR] 50-200 mg Tablet Extended Release 1 tab PO Q8H RF: 0 sennosides-docusate sodium [Senna-S] 8.6-50 mg Tablet 1 tab PO DAILY RF: 0 aspirin [Ecotrin Low Strength] 81 mg Tablet,Delayed Release (Dr/Ec) 81 mg PO QPM RF: 0 levothyroxine 125 mcg Tablet 125 mcg PO DAILY RF: 0 gabapentin 100 mg Capsule 100 mg PO TID RF: 0 wlavayov-trj-MF-lycopen-lutein [Centrum Silver] 0.4-300-250 mg-mcg-mcg Tablet 1 tab PO QPM RF: 0 quetiapine [Seroquel] 50 mg Tablet 50 mg PO HS RF: 0 fenofibrate nanocrystallized 145 mg Tablet 145 mg PO DAILY RF: 0 cholecalciferol (vitamin D3) [Vitamin D3] 2,000 unit Tablet 2,000 unit PO DAILY RF: 0 venlafaxine 150 mg Tablet Extended Release 24hr 150 mg PO HS RF: 0 d-mannose Powder 1 tsp PO BID RF: 0 memantine-donepezil [Namzaric] 28-10 mg Capsule,Sprinkle,Er 24hr 1 cap PO QPM RF: 0 Status ED Status: Admitted Observation Patient
--- NOTE | 2018-04-24 15:11 | XR ---
EXAM DATE: 04/24/2018 2:18 PM EDT AGE/SEX: 82 years / Female INDICATIONS: Short of breath. CLINICAL DATA: This is the patient's initial encounter. Patient reports that signs and symptoms have been present for 1 day and indicates a pain score of 0/10. MEDICAL/SURGICAL HISTORY: Non-responsive. Angioplasty. COMPARISON: No prior exams available for comparison. FINDINGS: A single AP view of the chest demonstrates the lungs to be symmetrically aerated without evidence of mass, infiltrate or effusion. The cardiomediastinal contours are unremarkable. Osseous structures a re intact. CONCLUSION: No acute intrathoracic disease. Electronically signed by: Anton Gage MD 04/24/2018 3:09 PM EDT
--- NOTE | 2018-04-24 15:16 | XR ---
EXAM DATE: 04/24/2018 2:18 PM EDT AGE/SEX: 82 years / Female INDICATIONS: Right arm pain, AMS CLINICAL DATA: This is the patient's initial encounter. Patient reports that signs and symptoms have been present for 1 day and indicates a pain score of Nonresponsive. MEDICAL/SURGICAL HISTORY: Non-responsive. Abdominal aortic aneurysm repair. COMPARISON: No prior exams available for comparison. FINDINGS: Bony structures are intact and in normal alignment. Osseous density is osteopenic. Soft tissues are u nremarkable. No radiopaque foreign bodies seen. CONCLUSION: Unremarkable exam for patient's age. Electronically signed by: Anton Gage MD 04/24/2018 3:14 PM EDT
--- NOTE | 2018-04-24 15:17 | XR ---
EXAM DATE: 04/24/2018 2:18 PM EDT AGE/SEX: 82 years / Female INDICATIONS: AMS, appears to have right arm pain CLINICAL DATA: This is the patient's initial encounter. Patient reports that signs and symptoms have been present for 1 day and indicates a pain score of Nonresponsive. MEDICAL/SURGICAL HISTORY: Non-responsive. Non-responsive. COMPARISON: No prior exams available for comparison. FINDINGS: Bony structures are intact and in normal alignment. Joints are intact without dislocation or signifi cant arthropathy. There are some mild degenerative changes at the first carpometacarpal joint. Osseou s density is osteopenic.. Soft tissues are unremarkable. No radiopaque foreign bodies seen. CONCLUSION: There is osteopenia and some mild degenerative changes involving the first carpometacarpal joint. No acute fracture or joint dislocation. Electronically signed by: Anton Gage MD 04/24/2018 3:16 PM EDT
[2018-04-24 15:50] LABS: Baso % (Auto) 0.2 % (0.0-2.0); Eos % (Auto) 0.3 % (0.0-4.0); Hematocrit 43.7 % (35.0-46.0); Hemoglobin 14.4 gm/dL (11.6-15.3); Lymph # (Auto) 1.4 th/mm3 (1.0-4.8); Lymph % (Auto) 15.3 % (9.0-44.0); Mean Corpuscular HGB Conc 32.9 % (32.0-36.0); Mean Corpuscular Hemoglobin 32.2 pg (27.0-34.0); Mean Platelet Volume 9.2 fL (7.0-11.0); Mono % (Auto) 10.6 % (0.0-8.0); Neut # (Auto) 6.9 th/mm3 (1.8-7.7); Neut % (Auto) 73.6 % (16.0-70.0); Platelet Count 260 th/mm3 (150-450); Red Blood Count 4.46 mil/mm3 (4.00-5.30); Red Cell Distribution Width 13.1 % (11.6-17.2); White Blood Count 9.3 th/mm3 (4.0-11.0)
[2018-04-24 16:03] LABS: Activated Partial Thrombo Time 24.4 sec (24.3-30.1); INR 1.1 Ratio
[2018-04-24 16:06] LABS: Prothrombin Time 10.9 sec (9.8-11.6)
[2018-04-24 16:17] LABS: Bilirubin,Urine Negative (Negative); Clarity,Urine Clear (Clear); Color,Urine Amber (Yellw/Straw); Glucose,Urine (UA) Negative (Negative); Leukocyte Esterase,Urine Negative (Negative); Mucus,Urine Few /lpf (Occasional); Nitrite,Urine Negative (Negative); Specific Gravity,Urine 1.025 (1.002-1.035)
--- NOTE | 2018-04-24 17:13 | CT ---
EXAM DATE: 04/24/2018 2:39 PM EDT AGE/SEX: 82 years / Female INDICATIONS: Fall yesterday, altered mental status. CLINICAL DATA: This is the patient's initial encounter. Patient reports that signs and symptoms have been present for 2 days and indicates a pain score of Nonresponsive. MEDICAL/SURGICAL HISTORY: Alzheimer's disease. None. RADIATION DOSE: 21.38 CTDI (mGy) COMPARISON: No prior exams available for comparison. TECHNIQUE: Contiguous axial images were obtained using helical multirow detector technique. The vol umetric data was post-processed with multiplanar reconstruction in oblique axial, sagittal, and coron al planes. Using automated exposure control and adjustment of the mA and/or kV according to patient s ize, radiation dose was kept as low as reasonably achievable to obtain optimal diagnostic quality stacy ges. DICOM format image data is available electronically for review and comparison. FINDINGS: Vertebrae: Normal vertebral body height. Scattered degenerative changes. Anterior endplate osteophyt es C4-C6. Alignment: Normal. No subluxation. C2-3: The bony spinal canal is normal in size. No evidence of disc bulge or herniation. The neural foramina are bilaterally patent. C3-4: Small left-sided paracentral protrusion. No canal stenosis The neural foramina are bilaterally patent. C4-5: The bony spinal canal is normal in size. No evidence of disc bulge or herniation. The neural foramina are bilaterally patent. C5-6: The bony spinal canal is normal in size. No evidence of disc bulge or herniation. The neural foramina are bilaterally patent. C6-7: The bony spinal canal is normal in size. No evidence of disc bulge or herniation. The neural foramina are bilaterally patent. C7-T1: The bony spinal canal is normal in size. No evidence of disc bulge or herniation. The neura l foramina are bilaterally patent. CONCLUSION: 1. Degenerative changes without fracture/subluxation. Electronically signed by: Pascual Rivera MD 04/24/2018 5:12 PM EDT
--- NOTE | 2018-04-24 17:15 | CT ---
EXAM DATE: 04/24/2018 2:39 PM EDT AGE/SEX: 82 years / Female INDICATIONS: Fall yesterday, altered mental status. CLINICAL DATA: This is the patient's initial encounter. Patient reports that signs and symptoms have been present for 2 days and indicates a pain score of Nonresponsive. MEDICAL/SURGICAL HISTORY: Alzheimer's disease. None. RADIATION DOSE: 36.80 CTDI (mGy) COMPARISON: No prior exams available for comparison. TECHNIQUE: CT of the head without contrast. Using automated exposure control and adjustment of the mA and/or kV according to patient size, radiation dose was kept as low as reasonably achievable to ob tain optimal diagnostic quality images. DICOM format image data is available electronically for revi ew and comparison. FINDINGS: Cerebrum: The ventricles are normal for age. No evidence of midline shift, mass lesion, hemorrhage or acute infarction. No extraaxial fluid collections are seen. Posterior Fossa: The cerebellum and brainstem are intact. The 4th ventricle is midline. The cerebe llopontine angle is unremarkable. Extracranial: The visualized portion of the orbits is intact. Skull: The calvaria is intact. No evidence of skull fracture. Hyperostosis frontalis internus. CONCLUSION: 1. No acute intracranial abnormality. . Electronically signed by: Pascual Rivera MD 04/24/2018 5:13 PM EDT
[2018-04-24 18:03] LABS: Alanine Aminotransferase 24 U/L (10-53); Albumin 2.9 g/dL (3.4-5.0); Alkaline Phosphatase 67 U/L (45-117); Anion Gap 5 meq/L (5-15); Aspartate Aminotransferase 28 U/L (15-37); Blood Urea Nitrogen 12 mg/dL (7-18); Calcium 7.9 mg/dL (8.5-10.1); Chloride 112 meq/L (98-107); Creatine Kinase 417 U/L (26-192); Glomerular Filtration Rate 75 mL/min (>89); Glucose,Random 82 mg/dL (74-106); Sodium 138 meq/L (136-145); Thyroid Stimulating Hormone 0.429 uIU/mL (0.358-3.740); Total Protein 7.4 g/dL (6.4-8.2)
[2018-04-24 18:34] LABS: CKMB Percent 0.3 % (0.0-4.0); Creatine Kinase MB 1.3 ng/mL (0.5-3.6)
[2018-04-24 18:55] LABS: Potassium 3.7 meq/L (3.5-5.1)
[2018-04-24] MEDS ORDERED: Bisacodyl 10 MG Supp RECTAL PRN (19:30)
[2018-04-24] MEDS ORDERED: Acetaminophen 325 MG Tablet PO PRN (19:30)
--- NOTE | 2018-04-24 19:43 | P.HP ---
History of Present Illness Service: [facility] Primary Care Physician: German Sagastume History of Present Illness: 82-year-old female with a past medical history significant for Alzheimer's disease, anxiety, dementia, depression, hypothyroidism and Parkinson's disease presents to the emergency department under [facility] for altered mental status. According to emergency department documentation, the patient fell out of bed last night while sleeping and remained on the floor throughout the night as her elderly was unable to get her off the floor. The patient is normally slightly confused but over the past 2-3 days it has been much worse than normal. The patient's reports that the patient had a fall a couple of days ago where she injured her right arm. Per nursing report, the patient will scream loudly if her right arm is touched or moved. X-rays negative. At the time of our interview, the patient is status post Ativan and unable to answer any questions. Review of Systems All other systems reviewed negative except as stated in HPI PMFSH - History History Provided By: Systems Applications Programming Lead / EMT - Medical History Medical History: Medical History (Last Updated 04/24/18 @ 19:36 by Inessa Mathis MD) Alzheimer disease Anxiety Dementia Depressed Fall Hypothyroid Knee arthropathy Parkinson disease Surgical history unknown - Family History Family History: Family History (Last Updated 04/24/18 @ 19:37 by Inessa Mathis MD) Other Family history unknown - Tobacco History Smoking Status: Unknown if ever smoked - Alcohol History How Often Do You Have a Drink Containing Alcohol: Unable to Obtain - Substance Use History Substance History: Unable to Obtain - Travel History Recent Travel in the [place] Within the Last 8 Weeks: No Recent Travel Out of the Country Within the Last 8 Weeks: No - Immunization History Tetanus Immunization: Unable to Assess Medications and Allergies Active Medications: Active Medications Sodium Chloride (Ns Flush) 2 ml IV.FLUSH PRN PRN PRN Reason: FLUSH AFTER USING IV ACCESS Allergies Allergy/AdvReac Type Severity Reaction Status Date / Time No Known Allergies Allergy Verified 04/24/18 14:36 Home Medications Medication Instructions Recorded Confirmed Type aspirin [Ecotrin Low Strength] 81 mg PO QPM 04/24/18 04/24/18 History carbidopa-levodopa [Sinemet CR] 1 tab PO Q8H 04/24/18 04/24/18 History cholecalciferol (vitamin D3) 2,000 unit PO DAILY 04/24/18 04/24/18 History [Vitamin D3] d-mannose 1 tsp PO BID 04/24/18 04/24/18 History fenofibrate nanocrystallized 145 mg PO DAILY 04/24/18 04/24/18 History gabapentin 100 mg PO TID 04/24/18 04/24/18 History levothyroxine 125 mcg PO DAILY 04/24/18 04/24/18 History memantine-donepezil [Namzaric] 1 cap PO QPM 04/24/18 04/24/18 History fbkzqoen-ndr-YT-lycopen-lutein 1 tab PO QPM 04/24/18 04/24/18 History [Centrum Silver] oxybutynin chloride 10 mg PO DAILY 04/24/18 04/24/18 History quetiapine [Seroquel] 50 mg PO HS 04/24/18 04/24/18 History sennosides-docusate sodium 1 tab PO DAILY 04/24/18 04/24/18 History [Senna-S] venlafaxine 150 mg PO HS 04/24/18 04/24/18 History Exam Vital signs: Vital Signs 04/24/18 14:32 04/24/18 14:36 04/24/18 17:51 Temperature 98.0 F Pulse Rate 72 72 84 Respiratory Rate 20 16 Blood Pressure 132/95 H 170/65 H Pulse Oximetry 99 97 96 Intake & Output 04/24/18 04/24/18 04/25/18 06:59 18:59 06:59 Intake Total 500 / 500 Balance 500 / 500 Weight 90.718 kg Intake: IV 500 / 500 NS Inj 500 ML @ Wide Open IV. 500 / 500 SIG BOLUS ONE Rx#:[id number] Narrative: Gen.: No acute distress. Patient lying in bed in two-point restraints. Head: Normocephalic. Atraumatic. EENT: Pupils equal round and reactive to light. Nose without drainage. Airway intact. Throat without injection. Cardiovascular: Regular rate and rhythm. No murmurs, rubs or gallops. Respiratory: Lungs clear to auscultation bilaterally. No wheezes or rhonchi. Abdomen: Soft, nontender, nondistended. No peritoneal signs. Musculoskeletal: No gross deformities. No edema. Skin: No obvious rashes or erythema. Neuro: Moves all 4 extremities spontaneously. Unable to answer questions including name. Unable to assess mental status at this time. Results - Labs CBC & Chem 7: 04/24/18 15:45 04/24/18 18:20 Labs: Laboratory Results - last 24 hr 04/24/18 04/24/18 04/24/18 15:45 15:45 15:45 WBC 9.3 RBC 4.46 Hgb 14.4 Hct 43.7 MCV 98.0 MCH 32.2 MCHC 32.9 RDW 13.1 Plt Count 260 MPV 9.2 Neut % (Auto) 73.6 H Lymph % (Auto) 15.3 [place] % (Auto) 10.6 H Eos % (Auto) 0.3 Baso % (Auto) 0.2 Neut # (Auto) 6.9 Lymph # (Auto) 1.4 [place] # (Auto) 1.0 H Eos # (Auto) 0.0 Baso # (Auto) 0.0 WBC Differential . Differential Comment Auto diff final PT 10.9 INR 1.1 APTT 24.4 Sodium Potassium Chloride Carbon Dioxide Anion Gap BUN Creatinine Estimated GFR Random Glucose Lactic Acid 2.0 Calcium Total Bilirubin AST ALT Alkaline Phosphatase Total Creatine Kinase CK-MB (CK-2) CK-MB (CK-2) % Troponin I Total Protein Albumin TSH Urine Color Urine Clarity Urine pH Ur Specific [place] Urine Protein Urine Glucose (UA) Urine Ketones Urine Occult Blood Urine Nitrate Urine Bilirubin Urine Urobilinogen Ur Leukocyte Esterase Urine RBC Urine WBC Urine Mucus Micro UA Comment Ur Microscopic Review Urine Culture Comments Serum Alcohol 04/24/18 04/24/18 04/24/18 16:00 17:00 18:20 WBC RBC Hgb Hct MCV MCH MCHC RDW Plt Count MPV Neut % (Auto) Lymph % (Auto) [place] % (Auto) Eos % (Auto) Baso % (Auto) Neut # (Auto) Lymph # (Auto) [place] # (Auto) Eos # (Auto) Baso # (Auto) WBC Differential Differential Comment PT INR APTT Sodium 138 Potassium 3.7 3.5 Chloride 112 H Carbon Dioxide 21.0 Anion Gap 5 BUN 12 Creatinine 0.74 Estimated GFR 75 L Random Glucose 82 Lactic Acid Calcium 7.9 L Total Bilirubin 0.8 AST 28 ALT 24 Alkaline Phosphatase 67 Total Creatine Kinase 417 H CK-MB (CK-2) 1.3 CK-MB (CK-2) % 0.3 Troponin I Less than 0.02 L Total Protein 7.4 Albumin 2.9 L TSH 0.429 Urine Color Tori Urine Clarity Clear Urine pH 5.0 Ur Specific [place] 1.025 Urine Protein Negative Urine Glucose (UA) Negative Urine Ketones Trace H Urine Occult Blood Negative Urine Nitrate Negative Urine Bilirubin Negative Urine Urobilinogen 2.0 H Ur Leukocyte Esterase Negative Urine RBC 1 Urine WBC 1 Urine Mucus Few H Micro UA Comment Cath-culture not ind Ur Microscopic Review Not Reportable Urine Culture Comments Cath-cult not ind Serum Alcohol Less than 3 - Imaging Impressions Cervical Spine CT 04/24/18 14:18 CONCLUSION: 1. Degenerative changes without fracture/subluxation. Chest X-Ray 04/24/18 14:18 CONCLUSION: No acute intrathoracic disease. Forearm X-Ray 04/24/18 14:18 CONCLUSION: Unremarkable exam for patient's age. Head CT 04/24/18 14:18 CONCLUSION: 1. No acute intracranial abnormality. . Wrist X-Ray 04/24/18 14:18 CONCLUSION: There is osteopenia and some mild degenerative changes involving the first carpometacarpal joint. No acute fracture or joint dislocation. Caprini VTE Risk Assessment Caprini VTE Risk Assessment: Moderate/High Risk (score >= 2) Caprini Risk Assessment Model: Point Value = 1 Point Value = 2 Point Value = 3 Point Value = 5 Age 41-60 Minor surgery BMI > 25 kg/m2 Swollen legs Varicose veins or History of unexplained or recurrent spontaneous Oral contraceptives or hormone replacement Sepsis (< 1 month) Serious lung disease, including pneumonia (< 1 month) Abnormal pulmonary function Acute myocardial infarction Congestive heart failure (< 1 month) History of inflammatory bowel disease Medical patient at bed rest Age 61-74 Arthroscopic surgery Major open surgery (> 45 min) Laparoscopic surgery (> 45 min) Malignancy Confined to bed (> 72 hours) Immobilizing plaster cast Central venous access Age >= 75 History of VTE Family history of VTE Factor V Leiden Prothrombin [id number] Lupus anticoagulant Anticardiolipin antibodies Elevated serum homocysteine Heparin-induced thrombocytopenia Other congenital or acquired thrombophilia Stroke (< 1 month) Elective arthroplasty Hip, pelvis, or leg fracture Acute spinal cord injury (< 1 month) Prophylaxis Regimen: Total Risk Factor Score Risk Level Prophylaxis Regimen 0-1 Low Early ambulation 2 Moderate Order ONE of the following: *Sequential Compression Device (SCD) *Heparin 5000 units SQ BID 3-4 Higher Order ONE of the following medications: *Heparin 5000 units SQ TID *Enoxaparin/Lovenox 40 mg SQ daily (WT < 150 kg, CrCl > 30 mL/min) *Enoxaparin/Lovenox 30 mg SQ daily (WT < 150 kg, CrCl > 10-29 mL/min) *Enoxaparin/Lovenox 30 mg SQ BID (WT < 150 kg, CrCl > 30 mL/min) AND/OR *Sequential Compression Device (SCD) 5 or more Highest Order ONE of the following medications: *Heparin 5000 units SQ TID (Preferred with Epidurals) *Enoxaparin/Lovenox 40 mg SQ daily (WT < 150 kg, CrCl > 30 mL/min) *Enoxaparin/Lovenox 30 mg SQ daily (WT < 150 kg, CrCl > 10-29 mL/min) *Enoxaparin/Lovenox 30 mg SQ BID (WT < 150 kg, CrCl > 30 mL/min) AND *Sequential Compression Device (SCD) Assessment and Plan - Plan Assessment/plan: 1. Altered mental status Unclear etiology Head CT, chest x-ray, UA negative Electrolytes within normal limits Brain MRI pending 2. Suicidal ideation Per report, the patient stated that she wanted to get a gun and kill herself [facility] Psychiatry consulted, appreciate recommendations 3. Right arm injury Secondary to fall X-rays negative 4. Dementia/Parkinson's disease Continue home medications 5. Hypothyroidism TSH within normal limits Continue home Synthroid FEN Cardiac diet Electrolytes: Monitor and replete as needed Heparin
[2018-04-24] MEDS ORDERED: Sodium Chloride 0.9% 2 ML Flush PRN IV.FLUSH (21:35)
[2018-04-24] MEDS: Heparin - SQ 10,000 UNITS/ML Vial SQ SCH (21:40)
[2018-04-24] MEDS: Venlafaxine XR 75 MG Capsule PO SCH ×2 (21:41→21:45)
[2018-04-24] MEDS: Carbidopa/Levodopa CR 50/200 MG Tablet PO SCH (21:44)
[2018-04-24] MEDS: Senna/Docusate Sodium 8.6/50 MG Tablet PO SCH (21:44)
[2018-04-24 23:18] LABS: Amphetamine Screen,Urine Neg (Neg); Barbiturate Screen,Urine Neg (Neg); Cannabinoid Screen,Urine Neg (Neg); Cocaine Screen,Urine Neg (Neg)
[2018-04-24 23:25] LABS: Opiate Screen,Urine Neg (Neg)
[2018-04-25] MEDS: Carbidopa/Levodopa CR 50/200 MG Tablet PO SCH ×3 (06:06→21:56)
[2018-04-25] MEDS: Levothyroxine 125 MCG Tablet PO SCH (06:06)
[2018-04-25 06:24] LABS: Baso % (Auto) 0.5 % (0.0-2.0); Eos # (Auto) 0.1 th/mm3 (0.0-0.4); Hematocrit 39.6 % (35.0-46.0); Hemoglobin 13.4 gm/dL (11.6-15.3); Lymph # (Auto) 2.3 th/mm3 (1.0-4.8); Lymph % (Auto) 24.9 % (9.0-44.0); Mean Corpuscular HGB Conc 33.8 % (32.0-36.0); Mean Corpuscular Hemoglobin 33.1 pg (27.0-34.0); Mean Platelet Volume 10.5 fL (7.0-11.0); Mono % (Auto) 10.6 % (0.0-8.0); Neut # (Auto) 5.9 th/mm3 (1.8-7.7); Platelet Count 223 th/mm3 (150-450); Red Blood Count 4.04 mil/mm3 (4.00-5.30); White Blood Count 9.4 th/mm3 (4.0-11.0)
[2018-04-25 06:39] LABS: Anion Gap 10 meq/L (5-15); Blood Urea Nitrogen 15 mg/dL (7-18); Calcium 8.9 mg/dL (8.5-10.1); Carbon Dioxide 18.3 meq/L (21.0-32.0); Chloride 112 meq/L (98-107); Glomerular Filtration Rate Greater Than 89 mL/min (>89); Glucose,Random 85 mg/dL (74-106); Potassium 3.7 meq/L (3.5-5.1); Sodium 140 meq/L (136-145)
[2018-04-25 07:32] LABS: Platelet Estimate Normal (Normal); Platelet Morphology Normal (Normal)
--- NOTE | 2018-04-25 10:03 | P.PNIM ---
Subjective Interval history: f/u; altered mental status in no acute distress. somewhat lethargic. no fever. reported cough with swallowing per RN. at the bedside. Physical Exam Vital signs: Vital Signs 04/24/18 14:32 04/24/18 14:36 04/24/18 17:51 Temperature 98.0 F Pulse Rate 72 72 84 Respiratory Rate 20 16 Blood Pressure 132/95 H 170/65 H Pulse Oximetry 99 97 96 04/24/18 20:00 04/25/18 00:00 04/25/18 03:50 Temperature 99.8 F H 99.5 F 98.2 F Pulse Rate 89 81 72 Respiratory Rate 17 17 18 Blood Pressure 187/69 H 148/66 H 167/77 H Pulse Oximetry 96 94 L 93 L 04/25/18 07:54 Temperature 99.6 F Pulse Rate 75 Respiratory Rate 18 Blood Pressure 165/77 H Pulse Oximetry 95 Intake & Output 04/24/18 04/25/18 04/25/18 18:59 06:59 18:59 Intake Total 500 / 500 0 / 0 Output Total 300 / 300 Balance 500 / 500 -300 / -300 Weight 90.718 kg 90.718 kg Intake: IV 500 / 500 NS Inj 500 ML @ Wide Open IV. 500 / 500 SIG BOLUS ONE Rx#:[id number] Oral 0 / 0 Output: Urine 300 / 300 - Constitutional no acute distress - Routine Respiratory Exam Present: CTA bilaterally - Routine Cardiovascular Exam Present: RRR - Routine Abdominal Exam Present: soft - Routine Extremities Exam Comments: no pedal edema. - Routine Neurological Exam lethargic. - Urinary Catheter Management Indwelling Urethral Catheter Cath placed during this visit: yes Reason for continuing: Hourly intake/output Insertion date: 04/24/18 Insertion time: 18:43 Results - Labs CBC & Chem 7: 04/25/18 04:30 04/25/18 04:35 Laboratory Results - last 24 hr 04/24/18 04/24/18 04/24/18 15:45 15:45 15:45 WBC 9.3 RBC 4.46 Hgb 14.4 Hct 43.7 MCV 98.0 MCH 32.2 MCHC 32.9 RDW 13.1 Plt Count 260 MPV 9.2 Prelim Diff (Auto) Neut % (Auto) 73.6 H Lymph % (Auto) 15.3 [place] % (Auto) 10.6 H Eos % (Auto) 0.3 Baso % (Auto) 0.2 Neut # (Auto) 6.9 Lymph # (Auto) 1.4 [place] # (Auto) 1.0 H Eos # (Auto) 0.0 Baso # (Auto) 0.0 WBC Differential . Diff Scan Differential Comment Auto diff final Platelet Estimate Platelet Morphology PT 10.9 INR 1.1 APTT 24.4 Sodium Potassium Chloride Carbon Dioxide Anion Gap BUN Creatinine Estimated GFR POC Glucose Random Glucose Lactic Acid 2.0 Calcium Total Bilirubin AST ALT Alkaline Phosphatase Ammonia Total Creatine Kinase CK-MB (CK-2) CK-MB (CK-2) % Troponin I Total Protein Albumin TSH Urine Color Urine Clarity Urine pH Ur Specific [place] Urine Protein Urine Glucose (UA) Urine Ketones Urine Occult Blood Urine Nitrate Urine Bilirubin Urine Urobilinogen Ur Leukocyte Esterase Urine RBC Urine WBC Urine Mucus Micro UA Comment Ur Microscopic Review Urine Culture Comments Urine Opiates Screen Ur Barbiturates Screen Ur Amphetamines Screen U Benzodiazepines Scrn Urine Cocaine Screen U Cannabinoids Screen Serum Alcohol 04/24/18 04/24/18 04/24/18 16:00 17:00 18:20 WBC RBC Hgb Hct MCV MCH MCHC RDW Plt Count MPV Prelim Diff (Auto) Neut % (Auto) Lymph % (Auto) [place] % (Auto) Eos % (Auto) Baso % (Auto) Neut # (Auto) Lymph # (Auto) [place] # (Auto) Eos # (Auto) Baso # (Auto) WBC Differential Diff Scan Differential Comment Platelet Estimate Platelet Morphology PT INR APTT Sodium 138 Potassium 3.7 3.5 Chloride 112 H Carbon Dioxide 21.0 Anion Gap 5 BUN 12 Creatinine 0.74 Estimated GFR 75 L POC Glucose Random Glucose 82 Lactic Acid Calcium 7.9 L Total Bilirubin 0.8 AST 28 ALT 24 Alkaline Phosphatase 67 Ammonia Total Creatine Kinase 417 H CK-MB (CK-2) 1.3 CK-MB (CK-2) % 0.3 Troponin I Less than 0.02 L Total Protein 7.4 Albumin 2.9 L TSH 0.429 Urine Color Tori Urine Clarity Clear Urine pH 5.0 Ur Specific [place] 1.025 Urine Protein Negative Urine Glucose (UA) Negative Urine Ketones Trace H Urine Occult Blood Negative Urine Nitrate Negative Urine Bilirubin Negative Urine Urobilinogen 2.0 H Ur Leukocyte Esterase Negative Urine RBC 1 Urine WBC 1 Urine Mucus Few H Micro UA Comment Cath-culture not ind Ur Microscopic Review Not Reportable Urine Culture Comments Cath-cult not ind Urine Opiates Screen Ur Barbiturates Screen Ur Amphetamines Screen U Benzodiazepines Scrn Urine Cocaine Screen U Cannabinoids Screen Serum Alcohol Less than 3 04/24/18 04/24/18 04/24/18 21:20 22:20 22:24 WBC RBC Hgb Hct MCV MCH MCHC RDW Plt Count MPV Prelim Diff (Auto) Neut % (Auto) Lymph % (Auto) [place] % (Auto) Eos % (Auto) Baso % (Auto) Neut # (Auto) Lymph # (Auto) [place] # (Auto) Eos # (Auto) Baso # (Auto) WBC Differential Diff Scan Differential Comment Platelet Estimate Platelet Morphology PT INR APTT Sodium Potassium Chloride Carbon Dioxide Anion Gap BUN Creatinine Estimated GFR POC Glucose 96 Random Glucose Lactic Acid Calcium Total Bilirubin AST ALT Alkaline Phosphatase Ammonia 19 Total Creatine Kinase CK-MB (CK-2) CK-MB (CK-2) % Troponin I Total Protein Albumin TSH Urine Color Urine Clarity Urine pH Ur Specific [place] Urine Protein Urine Glucose (UA) Urine Ketones Urine Occult Blood Urine Nitrate Urine Bilirubin Urine Urobilinogen Ur Leukocyte Esterase Urine RBC Urine WBC Urine Mucus Micro UA Comment Ur Microscopic Review Urine Culture Comments Urine Opiates Screen Neg Ur Barbiturates Screen Neg Ur Amphetamines Screen Neg U Benzodiazepines Scrn Neg Urine Cocaine Screen Neg U Cannabinoids Screen Neg Serum Alcohol 04/25/18 04/25/18 04/25/18 04:30 04:35 06:43 WBC 9.4 RBC 4.04 Hgb 13.4 Hct 39.6 MCV 98.0 MCH 33.1 MCHC 33.8 RDW 13.0 Plt Count 223 MPV 10.5 Prelim Diff (Auto) Slide review pending Neut % (Auto) 63.0 Lymph % (Auto) 24.9 [place] % (Auto) 10.6 H Eos % (Auto) 1.0 Baso % (Auto) 0.5 Neut # (Auto) 5.9 Lymph # (Auto) 2.3 [place] # (Auto) 1.0 H Eos # (Auto) 0.1 Baso # (Auto) 0.0 WBC Differential . Diff Scan Auto diff confirmed Differential Comment . Platelet Estimate Normal Platelet Morphology Normal PT INR APTT Sodium 140 Potassium 3.7 Chloride 112 H Carbon Dioxide 18.3 L Anion Gap 10 BUN 15 Creatinine 0.59 Estimated GFR Greater than 89 POC Glucose 88 Random Glucose 85 Lactic Acid Calcium 8.9 D Total Bilirubin AST ALT Alkaline Phosphatase Ammonia Total Creatine Kinase CK-MB (CK-2) CK-MB (CK-2) % Troponin I Total Protein Albumin TSH Urine Color Urine Clarity Urine pH Ur Specific [place] Urine Protein Urine Glucose (UA) Urine Ketones Urine Occult Blood Urine Nitrate Urine Bilirubin Urine Urobilinogen Ur Leukocyte Esterase Urine RBC Urine WBC Urine Mucus Micro UA Comment Ur Microscopic Review Urine Culture Comments Urine Opiates Screen Ur Barbiturates Screen Ur Amphetamines Screen U Benzodiazepines Scrn Urine Cocaine Screen U Cannabinoids Screen Serum Alcohol - Imaging Impressions Cervical Spine CT 04/24/18 14:18 CONCLUSION: 1. Degenerative changes without fracture/subluxation. Chest X-Ray 04/24/18 14:18 CONCLUSION: No acute intrathoracic disease. Forearm X-Ray 04/24/18 14:18 CONCLUSION: Unremarkable exam for patient's age. Head CT 04/24/18 14:18 CONCLUSION: 1. No acute intracranial abnormality. . Wrist X-Ray 04/24/18 14:18 CONCLUSION: There is osteopenia and some mild degenerative changes involving the first carpometacarpal joint. No acute fracture or joint dislocation. Assessment and Plan - Plan 1. Altered mental status Head CT, chest x-ray, UA negative Electrolytes within normal limits Brain MRI pending will consult Neurology. 2. Suicidal ideation Per report, the patient stated that she wanted to get a gun and kill herself [facility] Psychiatry consulted, appreciate recommendations 3. Right arm injury Secondary to fall X-rays negative 4. Dementia/Parkinson's disease Continue home medications 5. Hypothyroidism TSH within normal limits Continue home Synthroid 6- questionable dysphagia; will consult [facility] Cardiac diet Electrolytes: Monitor and replete as needed Heparin consult PT. code status was d/w the patient's ; the patient has a living will which the will bring in. will consult palliative care to assist with goals of care.
--- NOTE | 2018-04-25 10:45 | ECG ---
Date Performed: 04/24/2018 Time Performed: 18:10:20 PTAGE: 82 years EKG: Sinus rhythm MARKED LEFT AXIS DEVIATION ABNORMAL ECG PREVIOUS TRACING : 04/24/2018 15.18 DOCTOR: Maurilio Aggarwal Interpretating Date/Time 04/25/2018 10:44:02
--- NOTE | 2018-04-25 11:00 | P.CONPAL ---
Consult Service: Palliative Care Requesting Physician: Vick Del Cid (Thank you) Reason for Consult: a. To assist with evaluation and management of symptoms including: Confusion, agitation b. To assist medical decision maker(s) with: better understanding of current medical conditions; weighing benefits/burdens of medical treatment options; making medical treatment decisions. Primary Care Provider: German Sagastume History of Present Illness History of Present Illness: This is an 82-year-old female with a history of Alzheimer's dementia, hyperlipidemia, hypothyroidism, depression and Parkinson's disease who presented to the emergency department via EMS under the Hough act. She resides at home with her elderly last night fell out of bed. Her tried to get her up but he could not get her back into bed so she states sleeping on the floor. She had also fallen a few days prior injuring her right arm. Her reports that she has been confused and told him that she wanted a gun to kill herself. At that time the summoned the police. She is alert oriented to person only. She was found to scream out with any manipulation of her right wrist, however imaging was negative for fracture or dislocation. The states that she has been progressively more confused worsening over the last 2-3 days. She had previously had an episode of acute confusion secondary to UTI and osteomyelitis of her foot. Previously seen [facility] in June 2017 for pneumonia, requiring a 16-day stay. Clinical findings on admission * CT of the C-spine without contrast shows degenerative changes without fracture or subluxation. * Chest x-ray shows no acute intrathoracic disease. * Electrocardiogram shows a supraventricular rhythm extensive artifact but appears sinus * X-ray of the right forearm was unremarkable for patient's age. * Head CT without contrast shows no acute intracranial abnormality. * Right wrist x-ray shows osteopenia, some mild degenerative changes involving the first carpometacarpal joint with no acute fracture or joint dislocation. * WBC 9.3, hemoglobin 14.4, hematocrit 43.7, platelets 260, PT 10.9, INR 1.1, APTT 24.4, lactic acid 2.0, sodium 138, potassium 3.7, BUN 12, creatinine 0.74, calcium 7.9, total bilirubin 0.8, AST 28, ALT 24, alkaline phosphatase 67, T CK 417, CK-MB 1.3, CK-MB percent 0.3, troponin less than 0.02, total protein 7.4, BUN 2.9, TSH 0.429, urinalysis shows a clear chacho specimen with a pH of 5.0, specific gravity 1.025 trace ketones, 2.0 urobilinogen, negative leukocyte esterase negative bacteria, no culture indicated serum alcohol less than 3. This is a well-developed, well-nourished female lying in bed sleeping. She is unarousable. With the assistance of speech therapy, we sat her up, spoke loudly, turned on lights, retracted eyelids to check pupils, tried to converse with minimal results. She would open her eyes briefly go back to sleep. She did not follow commands. She was evaluated by psychiatry later in the day and was more alert and able to participate. Per that interaction, psychiatry has lifted the Hough act and stated she was not appropriate for inpatient admission. The family describes her confusion as intermittent, waxing and waning, moderate to severe, worse at night without modifying factors. Her agitation comes on suddenly, moderate to severe, expressed as irritability and frustration, occurs intermittently, improved with Seroquel. Past medical history Parkinson's disease Alzheimer's dementia Hypothyroidism Hyperlipidemia Depression Arthritis Peripheral neuropathy Pulmonary embolus GERD Paroxysmal atrial fibrillation Diplopia since 2012 Past surgical history Appendectomy Thyroidectomy Cholecystectomy Right total knee arthroplasty Cataract bilateral Social history Lifetime non-smoker No significant alcohol use No history of substance abuse Family history Mother of AR and cancer of unknown origin. Father of an AR. . Function/Cognitive Trajectory: states that she has becoming progressively more confused intermittent exacerbations. She is also suffering more frequent falls and injured herself a few days before admission, falling on her right side. Imaging showed no fractures or she remains very tender suspicious for bruising/sprain. She underwent physical rehabilitation [facility] in December 2016 but since that time has continued gait problems and increasing confusion. . Review of Systems Patient is confused and unable to provide a reliable ROS. A 12 part ROS taken as best as possible from medical record and available family. Constitutional: Reports weakness Eyes: Reports double vision Ears, Nose, Mouth, and Throat: Reports difficulty swallowing, Reports poor balance Gastrointestinal: Reports constipation Musculoskeletal: Reports muscle weakness Neurologic: Reports confusion Psychiatric: Reports confusion, Reports depression, Reports thoughts of hurting/ killing yourself PMFSH - History History Provided By: Multifold Operator / EMT - Medical History Medical History: Medical History (Last Updated 04/24/18 @ 19:36 by Inessa Mathis MD) Alzheimer disease Anxiety Dementia Depressed Fall Hypothyroid Knee arthropathy Parkinson disease Surgical history unknown - Family History Family History: Family History (Last Updated 04/24/18 @ 19:37 by Inessa Mathis MD) Other Family history unknown - Tobacco History Smoking Status: Unknown if ever smoked - Alcohol History How Often Do You Have a Drink Containing Alcohol: Unable to Obtain - Substance Use History Substance History: Unable to Obtain - Travel History Recent Travel in the [place] Within the Last 8 Weeks: No Recent Travel Out of the Country Within the Last 8 Weeks: No - Immunization History Tetanus Immunization: Unable to Assess Medications and Allergies Active Medications: Active Medications Acetaminophen (Tylenol) 650 mg PO Q4H PRN PRN Reason: Temp > 100.4 Al Hydroxide/Mg Hydroxide (Milk Of Magnesia Liq) 30 ml PO Q12H PRN PRN Reason: Mild Constipation Aspirin (Ecotrin) 81 mg PO HS [facility] Bisacodyl (Dulcolax Supp) 10 mg RECTAL DAILY PRN PRN Reason: SEVERE CONSITIPATION Carbidopa/Levodopa (Sinemet Cr 50/200 Mg) 1 tab PO Q8H [facility] Last Admin: 04/25/18 06:06 Dose: Not Given Fenofibrate (Tricor) 145 mg PO DAILY [facility] Heparin Sodium (Porcine) (Heparin Inj) 5,000 units SQ Q12H [facility] Last Admin: 04/24/18 21:40 Dose: 5,000 units Sodium Chloride (Ns Inj) 1,000 mls @ 84 mls/hr IV.CONT .[id number] [facility] Lactulose (Lactulose Liq) 30 ml PO DAILY PRN PRN Reason: SEVERE CONSITIPATION Levothyroxine Sodium (Synthroid) 125 mcg PO DAILY@0600 [facility] Last Admin: 04/25/18 06:06 Dose: Not Given Ondansetron HCl (Zofran Inj) 4 mg IV.PUSH Q6H PRN PRN Reason: NAUSEA OR VOMITING Senna/Docusate Sodium (Afsaneh-Colace) 1 tab PO BID [facility] Last Admin: 04/24/18 21:44 Dose: Not Given Sennosides (Senokot) 17.2 mg PO Q12H PRN PRN Reason: Moderate Constipation Sodium Chloride (Ns Flush) 2 ml IV.FLUSH BID [facility] Sodium Chloride (Ns Flush) 2 ml IV.FLUSH PRN PRN PRN Reason: FLUSH AFTER USING IV ACCESS Tolterodine Tartrate (Detrol La) 4 mg PO DAILY [facility] Venlafaxine HCl (Effexor Xr) 150 mg PO [facility] Last Admin: 04/24/18 21:45 Dose: Not Given Allergies Allergy/AdvReac Type Severity Reaction Status Date / Time No Known Allergies Allergy Verified 04/24/18 14:36 Home Medications Medication Instructions Recorded Confirmed Type aspirin [Ecotrin Low Strength] 81 mg PO QPM 04/24/18 04/24/18 History carbidopa-levodopa [Sinemet CR] 1 tab PO Q8H 04/24/18 04/24/18 History cholecalciferol (vitamin D3) 2,000 unit PO DAILY 04/24/18 04/24/18 History [Vitamin D3] d-mannose 1 tsp PO BID 04/24/18 04/24/18 History fenofibrate nanocrystallized 145 mg PO DAILY 04/24/18 04/24/18 History gabapentin 100 mg PO TID 04/24/18 04/24/18 History levothyroxine 125 mcg PO DAILY 04/24/18 04/24/18 History memantine-donepezil [Namzaric] 1 cap PO QPM 04/24/18 04/24/18 History deccisma-nmv-BL-lycopen-lutein 1 tab PO QPM 04/24/18 04/24/18 History [Centrum Silver] oxybutynin chloride 10 mg PO DAILY 04/24/18 04/24/18 History quetiapine [Seroquel] 50 mg PO HS 04/24/18 04/24/18 History sennosides-docusate sodium 1 tab PO BID 04/24/18 04/25/18 History [Senna-S] venlafaxine 150 mg PO HS 04/24/18 04/24/18 History Advance Directives Living Will: Yes Healthcare Surrogate: Yes Health Care Surrogate Name and Number: Dav Gallardo Power of Monitoring And Evaluation Advisor: Unknown Physical Exam Vital Signs: Vital Signs - 24 hr 04/24/18 14:32 04/24/18 14:36 04/24/18 17:51 Temperature 98.0 F Pulse Rate 72 72 84 Respiratory Rate 20 16 Blood Pressure 132/95 H 170/65 H Pulse Oximetry 99 97 96 04/24/18 20:00 04/25/18 00:00 04/25/18 03:50 Temperature 99.8 F H 99.5 F 98.2 F Pulse Rate 89 81 72 Respiratory Rate 17 17 18 Blood Pressure 187/69 H 148/66 H 167/77 H Pulse Oximetry 96 94 L 93 L 04/25/18 07:54 Temperature 99.6 F Pulse Rate 75 Respiratory Rate 18 Blood Pressure 165/77 H Pulse Oximetry 95 I&O: Intake & Output 04/23/18 04/24/18 04/25/18 04/26/18 06:59 06:59 06:59 06:59 Intake Total 500 / 500 Output Total 300 / 300 Balance 200 / 200 Weight 200 lb Physical Exam: CONSTITUTIONAL/GENERAL: This is an adequately nourished patient, lethargic, in no apparent distress. TUBES/LINES/DRAINS: PIV SKIN: No jaundice, rashes, or lesions. Ecchymoses on upper extremities. No wounds seen anteriorly. Skin temperature appropriate. Not diaphoretic. HEAD: Atraumatic. Normocephalic. EYES: Pupils equal and round and reactive. Extraocular motions intact. No scleral icterus. No injection or drainage. Fundi not examined. ENT: Unable to assess hearing. Nose without bleeding or purulent drainage. Throat without visible erythema, exudates, masses, or lesions. NECK: Trachea midline. Supple, nontender. No palpable thyroid enlargement or nodularity. CARDIOVASCULAR: Regular rate and rhythm without murmurs, gallops, or rubs. No JVD. Peripheral pulses symmetric. RESPIRATORY/CHEST: Symmetric, unlabored respirations. Clear to auscultation. Breath sounds equal bilaterally. No wheezes, rales, or rhonchi. GASTROINTESTINAL: Abdomen soft, non-tender, nondistended. No hepato-splenomegaly , or palpable masses. No guarding. Bowel sounds present. GENITOURINARY: Without palpable bladder distension. MUSCULOSKELETAL: Extremities without clubbing, cyanosis, or edema. No joint tenderness or effusion noted. No calf tenderness. No mottling or clubbing. LYMPHATICS: No palpable cervical or supraclavicular adenopathy. NEUROLOGICAL: Lethargic, not responding to commands, not interacting with examiner. Minimally arousable but falls back to sleep. PSYCHIATRIC: Lethargic. No agitation at this time. . Diagnostic Tests Laboratory: Laboratory Results - last 72 hr 04/24/18 04/24/18 04/24/18 15:45 15:45 15:45 WBC 9.3 RBC 4.46 Hgb 14.4 Hct 43.7 MCV 98.0 MCH 32.2 MCHC 32.9 RDW 13.1 Plt Count 260 MPV 9.2 Prelim Diff (Auto) Neut % (Auto) 73.6 H Lymph % (Auto) 15.3 Whitley % (Auto) 10.6 H Eos % (Auto) 0.3 Baso % (Auto) 0.2 Neut # (Auto) 6.9 Lymph # (Auto) 1.4 Whitley # (Auto) 1.0 H Eos # (Auto) 0.0 Baso # (Auto) 0.0 WBC Differential . Diff Scan Differential Comment Auto diff final Platelet Estimate Platelet Morphology PT 10.9 INR 1.1 APTT 24.4 Sodium Potassium Chloride Carbon Dioxide Anion Gap BUN Creatinine Estimated GFR POC Glucose Random Glucose Lactic Acid 2.0 Calcium Total Bilirubin AST ALT Alkaline Phosphatase Ammonia Total Creatine Kinase CK-MB (CK-2) CK-MB (CK-2) % Troponin I Total Protein Albumin TSH Urine Color Urine Clarity Urine pH Ur Specific [place] Urine Protein Urine Glucose (UA) Urine Ketones Urine Occult Blood Urine Nitrate Urine Bilirubin Urine Urobilinogen Ur Leukocyte Esterase Urine RBC Urine WBC Urine Mucus Micro UA Comment Ur Microscopic Review Urine Culture Comments Urine Opiates Screen Ur Barbiturates Screen Ur Amphetamines Screen U Benzodiazepines Scrn Urine Cocaine Screen U Cannabinoids Screen Serum Alcohol 04/24/18 04/24/18 04/24/18 16:00 17:00 18:20 WBC RBC Hgb Hct MCV MCH MCHC RDW Plt Count MPV Prelim Diff (Auto) Neut % (Auto) Lymph % (Auto) Whitley % (Auto) Eos % (Auto) Baso % (Auto) Neut # (Auto) Lymph # (Auto) Whitley # (Auto) Eos # (Auto) Baso # (Auto) WBC Differential Diff Scan Differential Comment Platelet Estimate Platelet Morphology PT INR APTT Sodium 138 Potassium 3.7 3.5 Chloride 112 H Carbon Dioxide 21.0 Anion Gap 5 BUN 12 Creatinine 0.74 Estimated GFR 75 L POC Glucose Random Glucose 82 Lactic Acid Calcium 7.9 L Total Bilirubin 0.8 AST 28 ALT 24 Alkaline Phosphatase 67 Ammonia Total Creatine Kinase 417 H CK-MB (CK-2) 1.3 CK-MB (CK-2) % 0.3 Troponin I Less than 0.02 L Total Protein 7.4 Albumin 2.9 L TSH 0.429 Urine Color Chacho Urine Clarity Clear Urine pH 5.0 Ur Specific [place] 1.025 Urine Protein Negative Urine Glucose (UA) Negative Urine Ketones Trace H Urine Occult Blood Negative Urine Nitrate Negative Urine Bilirubin Negative Urine Urobilinogen 2.0 H Ur Leukocyte Esterase Negative Urine RBC 1 Urine WBC 1 Urine Mucus Few H Micro UA Comment Cath-culture not ind Ur Microscopic Review Not Reportable Urine Culture Comments Cath-cult not ind Urine Opiates Screen Ur Barbiturates Screen Ur Amphetamines Screen U Benzodiazepines Scrn Urine Cocaine Screen U Cannabinoids Screen Serum Alcohol Less than 3 04/24/18 04/24/18 04/24/18 21:20 22:20 22:24 WBC RBC Hgb Hct MCV MCH MCHC RDW Plt Count MPV Prelim Diff (Auto) Neut % (Auto) Lymph % (Auto) Whitley % (Auto) Eos % (Auto) Baso % (Auto) Neut # (Auto) Lymph # (Auto) Whitley # (Auto) Eos # (Auto) Baso # (Auto) WBC Differential Diff Scan Differential Comment Platelet Estimate Platelet Morphology PT INR APTT Sodium Potassium Chloride Carbon Dioxide Anion Gap BUN Creatinine Estimated GFR POC Glucose 96 Random Glucose Lactic Acid Calcium Total Bilirubin AST ALT Alkaline Phosphatase Ammonia 19 Total Creatine Kinase CK-MB (CK-2) CK-MB (CK-2) % Troponin I Total Protein Albumin TSH Urine Color Urine Clarity Urine pH Ur Specific [place] Urine Protein Urine Glucose (UA) Urine Ketones Urine Occult Blood Urine Nitrate Urine Bilirubin Urine Urobilinogen Ur Leukocyte Esterase Urine RBC Urine WBC Urine Mucus Micro UA Comment Ur Microscopic Review Urine Culture Comments Urine Opiates Screen Neg Ur Barbiturates Screen Neg Ur Amphetamines Screen Neg U Benzodiazepines Scrn Neg Urine Cocaine Screen Neg U Cannabinoids Screen Neg Serum Alcohol 04/25/18 04/25/18 04/25/18 04:30 04:35 06:43 WBC 9.4 RBC 4.04 Hgb 13.4 Hct 39.6 MCV 98.0 MCH 33.1 MCHC 33.8 RDW 13.0 Plt Count 223 MPV 10.5 Prelim Diff (Auto) Slide review pending Neut % (Auto) 63.0 Lymph % (Auto) 24.9 Whitley % (Auto) 10.6 H Eos % (Auto) 1.0 Baso % (Auto) 0.5 Neut # (Auto) 5.9 Lymph # (Auto) 2.3 Whitley # (Auto) 1.0 H Eos # (Auto) 0.1 Baso # (Auto) 0.0 WBC Differential . Diff Scan Auto diff confirmed Differential Comment . Platelet Estimate Normal Platelet Morphology Normal PT INR APTT Sodium 140 Potassium 3.7 Chloride 112 H Carbon Dioxide 18.3 L Anion Gap 10 BUN 15 Creatinine 0.59 Estimated GFR Greater than 89 POC Glucose 88 Random Glucose 85 Lactic Acid Calcium 8.9 D Total Bilirubin AST ALT Alkaline Phosphatase Ammonia Total Creatine Kinase CK-MB (CK-2) CK-MB (CK-2) % Troponin I Total Protein Albumin TSH Urine Color Urine Clarity Urine pH Ur Specific [place] Urine Protein Urine Glucose (UA) Urine Ketones Urine Occult Blood Urine Nitrate Urine Bilirubin Urine Urobilinogen Ur Leukocyte Esterase Urine RBC Urine WBC Urine Mucus Micro UA Comment Ur Microscopic Review Urine Culture Comments Urine Opiates Screen Ur Barbiturates Screen Ur Amphetamines Screen U Benzodiazepines Scrn Urine Cocaine Screen U Cannabinoids Screen Serum Alcohol Result Diagrams: 04/25/18 04:30 04/25/18 04:35 Imaging: Cervical Spine CT 04/24/18 14:18 CONCLUSION: 1. Degenerative changes without fracture/subluxation. Chest X-Ray 04/24/18 14:18 CONCLUSION: No acute intrathoracic disease. Forearm X-Ray 04/24/18 14:18 CONCLUSION: Unremarkable exam for patient's age. Head CT 04/24/18 14:18 CONCLUSION: 1. No acute intracranial abnormality. . Wrist X-Ray 04/24/18 14:18 CONCLUSION: There is osteopenia and some mild degenerative changes involving the first carpometacarpal joint. No acute fracture or joint dislocation. Patient/Family Conference Present at Family Conference: Spoke with her son, Karthik, via telephone. He describes a pattern of decline in his mother over the past few months, noting more lethargy, more confusion, more agitation and frustration. He states he believes she is frustrated by the progression of her Alzheimer's and Parkinson's. He states that she is oriented enough to understand her prognosis and it frustrates her that it is out of her control. He has noted more episodes of verbally lashing out at family because of the frustration. He notes that she has had past episodes of pneumonia but has not noted any coughing with eating or drinking. He states her appetite is fine but she drinks very little fluid in spite of encouragement the from family. She is normally ambulatory and knows her family but is becoming increasingly more lethargic and sometimes sleeps all day. While the family would like to bring her home, they wish better symptom management for the agitation and frustration. I did discuss home health and he stated that they were looking into a full-time caregiver power plant assistant. We reviewed palliative care purpose and focus, the below listed items, past medical, social, surgical and psychosocial history. We discussed CODE STATUS and explored in depth the mechanics of intubation and cardiac resuscitation. Son states that his father needs to make that decision and will discuss it with him tonight. Palliative care contact information was provided and family is to contact me by phone to arrange a visit when they arrive tomorrow. . Family Conference Location: Telephone Issues Discussed: * Palliative care role, purpose, approach * Additional medical, psychosocial, and spiritual history * Patients general health, functional status, and cognitive changes in the months leading up to the current hospitalization * Patient/family understanding of the current medical problems * Patient/family understanding of prognosis * Patients goals of care as best understood from advance directives and/or conversations and/or values * Current medical treatment options and benefits/burdens of those options * Likely scenarios comparing ongoing aggressive care with a transition to comfort measures only * Questions answered to the best of my ability * Palliative care contact information provided Assessment and Plan Pertinent Non-Medical Issues: Psychosocial: She lives in [place] with her and son, who both provide care for her. 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 Ethical issues impacting care: None noted. . Important Contacts: : Dav Gallardo , Son: Matt . Prognosis: This is an 82-year-old female with a history of Parkinson's disease as well as Alzheimer's dementia. She is experiencing a trajectory of decline with frequent episodes of frustration, agitation alternating with lethargy. Her appetite is currently stable but she is not drinking liquid and appeared dehydrated on admission. She has had episodes of pneumonia which may indicate aspiration. As both Alzheimer's dementia and Parkinson's disease carry a terminal diagnosis, her long-term prognosis is guarded. Code Status: Full Code (By default) Plan: PLAN: Legal decision maker: Patient is not capacitated medical decision making and it is uncertain whether she will regain that capacity. Per her healthcare surrogate, her , Dav, is the healthcare surrogate. By [place] statutes he would also be the healthcare proxy. Goals: To be determined CODE STATUS: FULL CODE by default. SYMPTOMS: * Confusion: She remains confused per psychiatry evaluation. This has been an intermittent problem per family. She has been on Namzaric and is followed by a neurologist. This appears to be progressive Alzheimer's. No further recommendations at this time. * Agitation: At this time she is very lethargic but has been agitated on admission. She was previously on Seroquel, which could be resumed once her lethargy resolves and she is able to participate in a swallow evaluation. SUMMARY This is an 82-year-old female with an Parkinson's disease admitted under a Hough act after stating that she wanted a gun to kill herself. At this time psychiatry finds no threat to her person as she currently denies any suicidal or homicidal ideation and has lifted the Hough act. They do not feel she is an appropriate candidate for inpatient psychiatry as she is currently calm and pleasant during their assessment. We will continue to support family in determining goals of medical treatment. Is at elevated risk for further complications, decline and readmissions. Palliative care will continue to follow the patient during hospital course as condition evolves, to assist patient/decision-maker with understanding of their medical conditions, weighing benefits/burdens of treatment options, for clarification of goals of treatment. Additionally will assist with any symptoms of palliative concern. . Appreciation Thank you for the opportunity to participate in the care of Carmen Gallardo. Attestation Attestation: To help prompt me to consider important information that might be impacting today's encounter and assessment, information from prior notes written by myself or my colleagues may have been "brought forward" into today's note. My signature on this note, however, is an attestation that I personally performed the exam, history, and/or decision-making noted today, and, unless otherwise indicated, the interactions with patient, family, and staff as well as the review of records all occurred today. I also attest that the listed assessment and stated plan reflect my best clinical judgment today based on the combination of historical information, prior notes, and today's exam/ interactions. When time spent is documented, it refers only to time spent today by the signer, or if indicated, combined time spent today by collaborating physician/nurse practitioner. .
--- NOTE | 2018-04-25 11:18 | MR ---
EXAM DATE: 04/25/2018 10:36 AM EDT AGE/SEX: 82 years / Female INDICATIONS: Aphasia. Lethargy. CVA. CLINICAL DATA: This is the patient's subsequent encounter. Patient reports that signs and symptoms h ave been present for 2 days and indicates a pain score of 0/10. MEDICAL/SURGICAL HISTORY: Dementia. Total knee replacement, right. Appendectomy. Hysterectomy . COMPARISON: [facility] – [place], [place] HEAD W/O CONTRAST, 04/24/2018.. . TECHNIQUE: Multiplanar, multisequence examination of the brain was performed without contrast. FINDINGS: Examination is significantly degraded by motion. Cerebrum: The ventricles are normal for age. No evidence of midline shift, mass lesion, hemorrhage or acute infarction. No extraaxial fluid collections are seen. The pituitary gland and suprasellar cistern are normal in configuration. White Matter: No significant signal abnormalities are seen in the white matter. Posterior Fossa: The cerebellum and brainstem are intact. The 4th ventricle is midline. The cerebel lopontine angle is unremarkable. The cerebellar tonsils are normal in position. Diffusion Imaging: No focal areas of restricted diffusion are seen. No evidence of acute infarction . Extracranial: The visualized portions of the orbits and paranasal sinuses are unremarkable. CONCLUSION: 1. Examination is significantly degraded by motion. 2. No gross abnormality observed. Electronically signed by: Jon Cruz MD 04/25/2018 11:17 AM EDT
--- NOTE | 2018-04-25 11:21 | ECG ---
Date Performed: 04/24/2018 Time Performed: 15:18:57 PTAGE: 82 years EKG: SUPRAVENTRICULAR RHYTHM MARKED LEFT AXIS DEVIATION ABNORMAL ECG NO PREVIOUS TRACING DOCTOR: Maurilio Aggarwal Interpretating Date/Time 04/25/2018 11:20:30
[2018-04-25] MEDS: Sod Chloride 0.9% Inj 1,000 ML IV.CONT SCH ×2 (11:36→21:48)
[2018-04-25] MEDS: Tolterodine Tartrate LA 4 MG Capsule PO SCH (12:15)
[2018-04-25] MEDS: Senna/Docusate Sodium 8.6/50 MG Tablet PO SCH ×2 (12:15→21:47)
[2018-04-25] MEDS: Fenofibrate 145 MG Tablet PO SCH (12:16)
[2018-04-25] MEDS: Heparin - SQ 10,000 UNITS/ML Vial SQ SCH ×2 (12:16→21:41)
[2018-04-25] MEDS: Sodium Chloride 0.9% 2 ML Flush BID IV.FLUSH SCH ×2 (13:06→21:45)
--- NOTE | 2018-04-25 14:19 | P.CONPSY ---
Provisional Diagnosis Admission Date: April 24, 2018 19:19 [place] I.: Alzheimer's disease, depression History of Present Illness Service: ER Primary Care Provider: German Sagastume History of Present Illness: The patient is a a 82-year-old woman, domiciled with her in [facility], with a past medical history significant for Alzheimer's disease, anxiety, depression, no previous psychiatric hospitalizations, no previous suicide attempts, she is on Effexor 150 mg prescribed by PCP, medical history of hypothyroidism and Parkinson's disease presents to the emergency department under Hough act for altered mental status and suicidal ideation. According to emergency department documentation, the patient fell out of bed last night while sleeping and remained on the floor throughout the night as her elderly was unable to get her off the floor. The patient is normally slightly confused but over the past 2-3 days it has been much worse than normal. The patient's reports that the patient had a fall a couple of days ago where she injured her right arm. Per nursing report, the patient will scream loudly if her right arm is touched or moved. X-rays negative. At the time of our interview, the patient is status post Ativan and unable to answer any questions.e IV fluids. Patient was consulted to psychiatry to address Hough act. On my psychiatric evaluation the patient is calm, cooperative, pleasantly confused. She reports good mood. She seems to be in a good spirit, smiling often. When I asked her what is the reason she is here. She said that this is her house, when I asked her what is the name of this place, she said that she is in [facility], waiting for her . She denies depressive symptoms, she denies anxiety at the moment, she denies suicidal and homicidal ideation. I confronted the patient about her recent suicidal statement, she says that she has never stated that. I spoke with her son, Matt, by phone who believes that the patient expressed suicidal ideation on the frustration and she does not have any intentions to . He clarifies that the patient has psychiatric history of depression, but she has never been hospitalized, and she has never tried to commit suicide before. Clinical findings on admission CT of the C-spine without contrast shows degenerative changes without fracture or subluxation. Chest x-ray shows no acute intrathoracic disease. Electrocardiogram shows a supraventricular rhythm extensive artifact but appears sinus X-ray of the right forearm was unremarkable for patient's age. Head CT without contrast shows no acute intracranial abnormality. Right wrist x-ray shows osteopenia, some mild degenerative changes involving the first carpometacarpal joint with no acute fracture or joint dislocation. WBC 9.3, hemoglobin 14.4, hematocrit 43.7, platelets 260, PT 10.9, INR 1.1, APTT 24.4, lactic acid 2.0, sodium 138, potassium 3.7, BUN 12, creatinine 0.74, calcium 7.9, total bilirubin 0.8, AST 28, ALT 24, alkaline phosphatase 67, T CK 417, CK-MB 1.3, CK-MB percent 0.3, troponin less than 0.02, total protein 7.4, BUN 2.9, TSH 0.429, urinalysis shows a clear chacho specimen with a pH of 5.0, specific gravity 1.025 trace ketones, 2.0 urobilinogen, negative leukocyte esterase negative bacteria, no culture indicated serum alcohol less than 3. Past medical history: Parkinson's disease Alzheimer's dementia Hypothyroidism Hyperlipidemia Depression Arthritis Peripheral neuropathy Pulmonary embolus GERD Paroxysmal atrial fibrillation Diplopia since 2012 Past surgical history: Appendectomy Thyroidectomy Cholecystectomy Right total knee arthroplasty Cataract bilateral Social history She was born and raised in [place], she lives in [facility] with her Lifetime non-smoker No significant alcohol use No history of substance abuse Family history No family psychiatric history. Mother of VT and cancer of unknown origin. Father of an VT. 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 - Medical History Medical History: Medical History (Last Updated 04/24/18 @ 19:36 by Inessa Mathis MD) Alzheimer disease Anxiety Dementia Depressed Fall Hypothyroid Knee arthropathy Parkinson disease Surgical history unknown - Family History Family History: Family History (Last Updated 04/24/18 @ 19:37 by Inessa Mathis MD) Other Family history unknown - Tobacco History Smoking Status: Unknown if ever smoked - Alcohol History How Often Do You Have a Drink Containing Alcohol: Unable to Obtain - Substance Use History Substance History: Unable to Obtain - Travel History Recent Travel in the [place] Within the Last 8 Weeks: No Recent Travel Out of the Country Within the Last 8 Weeks: No - Immunization History Tetanus Immunization: Unable to Assess Medications and Allergies Active Medications: Active Medications Acetaminophen (Tylenol) 650 mg PO Q4H PRN PRN Reason: Temp > 100.4 Al Hydroxide/Mg Hydroxide (Milk Of Magnesia Liq) 30 ml PO Q12H PRN PRN Reason: Mild Constipation Aspirin (Ecotrin) 81 mg PO HS [facility] Bisacodyl (Dulcolax Supp) 10 mg RECTAL DAILY PRN PRN Reason: SEVERE CONSITIPATION Carbidopa/Levodopa (Sinemet Cr 50/200 Mg) 1 tab PO Q8H [facility] Last Admin: 04/25/18 06:06 Dose: Not Given Fenofibrate (Tricor) 145 mg PO DAILY [facility] Last Admin: 04/25/18 12:16 Dose: Not Given Heparin Sodium (Porcine) (Heparin Inj) 5,000 units SQ Q12H [facility] Last Admin: 04/25/18 12:16 Dose: 5,000 units Sodium Chloride (Ns Inj) 1,000 mls @ 84 mls/hr IV.CONT .[id number] [facility] Last Admin: 04/25/18 11:36 Dose: 84 mls/hr Lactulose (Lactulose Liq) 30 ml PO DAILY PRN PRN Reason: SEVERE CONSITIPATION Levothyroxine Sodium (Synthroid) 125 mcg PO DAILY@0600 [facility] Last Admin: 04/25/18 06:06 Dose: Not Given Ondansetron HCl (Zofran Inj) 4 mg IV.PUSH Q6H PRN PRN Reason: NAUSEA OR VOMITING Senna/Docusate Sodium (Afsaneh-Colace) 1 tab PO BID [facility] Last Admin: 04/25/18 12:15 Dose: Not Given Sennosides (Senokot) 17.2 mg PO Q12H PRN PRN Reason: Moderate Constipation Sodium Chloride (Ns Flush) 2 ml IV.FLUSH BID [facility] Last Admin: 04/25/18 13:06 Dose: 2 ml Sodium Chloride (Ns Flush) 2 ml IV.FLUSH PRN PRN PRN Reason: FLUSH AFTER USING IV ACCESS Tolterodine Tartrate (Detrol La) 4 mg PO DAILY [facility] Last Admin: 04/25/18 12:15 Dose: Not Given Venlafaxine HCl (Effexor Xr) 150 mg PO HS [facility] Last Admin: 04/24/18 21:45 Dose: Not Given Allergies Allergy/AdvReac Type Severity Reaction Status Date / Time No Known Allergies Allergy Verified 04/24/18 14:36 Home Medications Medication Instructions Recorded Confirmed Type aspirin [Ecotrin Low Strength] 81 mg PO QPM 04/24/18 04/24/18 History carbidopa-levodopa [Sinemet CR] 1 tab PO Q8H 04/24/18 04/24/18 History cholecalciferol (vitamin D3) 2,000 unit PO DAILY 04/24/18 04/24/18 History [Vitamin D3] d-mannose 1 tsp PO BID 04/24/18 04/24/18 History fenofibrate nanocrystallized 145 mg PO DAILY 04/24/18 04/24/18 History gabapentin 100 mg PO TID 04/24/18 04/24/18 History levothyroxine 125 mcg PO DAILY 04/24/18 04/24/18 History memantine-donepezil [Namzaric] 1 cap PO QPM 04/24/18 04/24/18 History byzhdvod-gkv-TS-lycopen-lutein 1 tab PO QPM 04/24/18 04/24/18 History [Centrum Silver] oxybutynin chloride 10 mg PO DAILY 04/24/18 04/24/18 History quetiapine [Seroquel] 50 mg PO HS 04/24/18 04/24/18 History sennosides-docusate sodium 1 tab PO BID 04/24/18 04/25/18 History [Senna-S] venlafaxine 150 mg PO HS 04/24/18 04/24/18 History Exam Vital signs: Vital Signs 04/24/18 14:32 04/24/18 14:36 04/24/18 17:51 Temperature 98.0 F Pulse Rate 72 72 84 Respiratory Rate 20 16 Blood Pressure 132/95 H 170/65 H Pulse Oximetry 99 97 96 04/24/18 20:00 04/25/18 00:00 04/25/18 03:50 Temperature 99.8 F H 99.5 F 98.2 F Pulse Rate 89 81 72 Respiratory Rate 17 17 18 Blood Pressure 187/69 H 148/66 H 167/77 H Pulse Oximetry 96 94 L 93 L 04/25/18 07:54 04/25/18 11:53 Temperature 99.6 F 98.7 F Pulse Rate 75 66 Respiratory Rate 18 16 Blood Pressure 165/77 H 169/79 H Pulse Oximetry 95 97 Intake & Output 04/24/18 04/25/18 04/25/18 18:59 06:59 18:59 Intake Total 500 / 500 0 / 0 Output Total 300 / 300 Balance 500 / 500 -300 / -300 Weight 90.718 kg 90.718 kg Intake: IV 500 / 500 NS Inj 500 ML @ Wide Open IV. 500 / 500 SIG BOLUS ONE Rx#:[id number] Oral 0 / 0 Output: Urine 300 / 300 Mental Status Examination Appearance: Appropriate Consciousness: Alert Orientation: Person Motor Activity: Normal gait Speech: Unremarkable Language: Adequate Fund of Knowledge: Adequate Attention and Concentration: Adequate Memory: Impaired Mood: Appropriate Affect: Appropriate Thought Process & Associations: Intact Thought Content: Bizarre thinking Hallucination Type: None Delusion Type: None Suicidal Ideation: No Suicidal Plan: No Suicidal Intention: No Homicidal Ideation: No Homicidal Plan: No Homicidal Intention: No Insight: Fair Judgment: Impulsive Assessment and Plan - Assessment (1) Dementia Code(s): F03.90 - Unspecified dementia without behavioral disturbance Status: Acute - Plan Plan: Estimated LOS: [] days On my psychiatric evaluation today the patient is calm, cooperative, pleasantly confused, disoriented in time and place, disoriented in person. However, the patient is able to tell me that she is in a good mood, denies depressive symptoms, denies anxiety, denies [place] and psychosis. She denies suicidal and homicidal ideation, she denies visual and auditory hallucinations. There is no agitation, no aggressive behavior, no prominent paranoia or delusions present at this moment. It seems to me that recent suicidal statement for which the patient was Hough acted was most probably the result of frustration and anger, her son also agrees with this. Patient does not meet criteria for involuntary psychiatric admission. Continue Effexor 150 mg daily for depression. I will lift the Hough act. Justification for Continued Inpatient Stay: Please, lift Hough act
--- NOTE | 2018-04-25 18:04 | MB ---
cc: Matt Addison MD, PhD DATE: 04/25/2018 REASON FOR CONSULTATION: Parkinson disease with mental status change. HISTORY OF PRESENT ILLNESS: Ms. Gallardo is a very pleasant 82-year-old woman who has history of Parkinson disease, as well as Alzheimer dementia, who presents under a Hough Act with alteration in mental status. She fell out of bed the night before with increasing confusion. She normally has some degree of confusion, but was much worse, but some hallucinations and delusions. PAST MEDICAL HISTORY: History of dementia, Parkinson disease, knee arthropathy, hypothyroidism, recent fall. CURRENT MEDICATIONS: 1. Tylenol. 2. Ecotrin. 3. Sinemet-CR 50/200 every 8 hours. 4. Subcutaneous heparin. 5. Lactulose. 6. Synthroid. 7. Zofran. 8. Detrol-LA. 9. Effexor XR 150 mg daily. PHYSICAL EXAMINATION: Blood pressure is 169/79, pulse is 66, respirations 16, temperature 98. Higher cognitive function: She is alert, disoriented to date and place. Recall 0/3 objects in 3 minutes. She has some delusions and appears to have some hallucinations. Speech is fluent. Cranial nerves intact. 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 She has moderate cogwheeling. DIAGNOSTIC DATA: CT brain: Normal for age. MRI brain is normal. There is some motion artifact. LABORATORY DATA: The white count is 9400, hemoglobin 13.4, hematocrit 39%, platelet count 223,000. PT 10.9, INR 1.1, aPTT 24.4. Sodium is 138, potassium 3.7, chloride 112, CO2 of 21, BUN is 12, creatinine 0.74, GFR 75, glucose is 82, AST 28, ALT 24, alkaline phosphatase 67. TSH 0.429. Urinalysis: pH is 5, creatinine 1.025. IMPRESSION: Parkinson disease with dementia showing signs of progression, probable superimposed encephalopathy. Rule out focal seizure. RECOMMENDATIONS: I would like to get an EEG for further evaluation. Matt Addison MD, PhD MADINA/sb , 05:35 PM , 05:48 PM
[2018-04-25] MEDS: Venlafaxine XR 75 MG Capsule PO SCH (21:45)
[2018-04-25] MEDS: QUEtiapine 25 MG Tablet PO SCH (21:45)
[2018-04-26] MEDS: Levothyroxine 125 MCG Tablet PO SCH (06:39)
[2018-04-26] MEDS: Carbidopa/Levodopa CR 50/200 MG Tablet PO SCH ×3 (06:39→22:00)
[2018-04-26 10:05] LABS: Anion Gap 10 meq/L (5-15); Blood Urea Nitrogen 12 mg/dL (7-18); Calcium 8.5 mg/dL (8.5-10.1); Carbon Dioxide 20.6 meq/L (21.0-32.0); Chloride 111 meq/L (98-107); Glomerular Filtration Rate Greater Than 89 mL/min (>89); Glucose,Random 82 mg/dL (74-106); Potassium 3.2 meq/L (3.5-5.1); Sodium 142 meq/L (136-145)
[2018-04-26] MEDS: Senna/Docusate Sodium 8.6/50 MG Tablet PO SCH ×2 (10:27→20:12)
[2018-04-26] MEDS: Heparin - SQ 10,000 UNITS/ML Vial SQ SCH ×2 (10:27→20:12)
[2018-04-26] MEDS: Fenofibrate 145 MG Tablet PO SCH (10:28)
[2018-04-26] MEDS: Tolterodine Tartrate LA 4 MG Capsule PO SCH (10:28)
[2018-04-26] MEDS: Sodium Chloride 0.9% 2 ML Flush BID IV.FLUSH SCH ×2 (10:28→20:12)
--- NOTE | 2018-04-26 11:32 | P.PNIM ---
Subjective Interval history: f/u; encephalopathy in no acute distress. awake and much more alert today. no fever or pain. at the bedside. Physical Exam Vital signs: Vital Signs 04/25/18 11:53 04/25/18 15:51 04/25/18 20:00 Temperature 98.7 F 97.5 F L 98.6 F Pulse Rate 66 68 78 Respiratory Rate 16 16 16 Blood Pressure 169/79 H 185/84 H 184/89 H Pulse Oximetry 97 97 98 04/26/18 00:00 04/26/18 03:52 04/26/18 08:55 Temperature 98.5 F 98.2 F 97.8 F Pulse Rate 73 65 69 Respiratory Rate 18 18 20 Blood Pressure 149/72 H 132/63 161/75 H Pulse Oximetry 95 96 94 L Intake & Output 04/25/18 04/26/18 04/26/18 18:59 06:59 18:59 Intake Total 1000 / 1000 Output Total 650 / 650 Balance -650 / -650 1000 / 1000 Intake: IV 1000 / 1000 NS Inj 1,000 ML @ 84 mls/hr IV. 1000 / 1000 CONT .[id number] [facility] Rx#:[id number] Output: Urine Amount (Catheter) 650 / 650 Indwelling Urethral Catheter 650 / 650 Other: Date of Last Bowel Movement 04/26/18 - Constitutional no acute distress - Routine Respiratory Exam Present: CTA bilaterally - Routine Cardiovascular Exam Present: RRR - Routine Abdominal Exam Present: soft - Routine Extremities Exam Comments: no pedal edema. - Routine Neurological Exam Present: alert (awake and more alert today.) - Urinary Catheter Management Indwelling Urethral Catheter Cath placed during this visit: yes Reason for continuing: Hourly intake/output Insertion date: 04/24/18 Insertion time: 18:43 Results - Labs CBC & Chem 7: 04/25/18 04:30 04/26/18 08:51 Laboratory Results - last 24 hr 04/26/18 08:51 Sodium 142 Potassium 3.2 L Chloride 111 H Carbon Dioxide 20.6 L Anion Gap 10 BUN 12 Creatinine 0.47 L Estimated GFR Greater than 89 Random Glucose 82 Calcium 8.5 Assessment and Plan - Plan 1. acute encephalopathy- with Parkinson's as the background Head CT, chest x-ray, UA negative Electrolytes within normal limits Brain MRI with no gross abnormality neurology consult appreciated; EEG pending. 2. Suicidal ideation Per report, the patient stated that she wanted to get a gun and kill herself Hough act lifted per psych. 3. Right arm injury Secondary to fall X-rays negative 4. Dementia/Parkinson's disease Continue home medications neurology consult appreciated. 5. Hypothyroidism TSH within normal limits Continue home Synthroid 6- questionable dysphagia; consulted [facility] Cardiac diet Electrolytes: Monitor and replete as needed Heparin consulted PT. palliative care following. Discharge Planning: possible discharge tomorrow- if stable and cleared by neurology- awaiting EEG.
[2018-04-26] MEDS: Sod Chloride 0.9% Inj 1,000 ML IV.CONT SCH (12:23)
--- NOTE | 2018-04-26 16:05 | MG ---
cc: Chandni Engel MD EEG NUMBER: [id number]. REFERRING PHYSICIAN: . ROOM: [facility] [place]. With photic stimulation, awake, , fell out of bed last night, has been confused. History of Alzheimer's and Parkinson's. MEDICATIONS: 1. Sinemet. 2. Seroquel 3. Effexor. DESCRIPTION OF THE RECORD: There is overall slowing of background, predominantly of 2-3 Hz consistent with delta frequency. A lot of eye movement artifact. Photic stimulation performed towards the end of the recording with some mild driving response. IMPRESSION: Abnormal EEG due to moderate slowing of background consistent with encephalopathic process; may be related to medicine effect or the patient's dementia; however, no epileptic activity. MD YASMIN Lewis/rashaun/svetlana , 03:08 PM , 03:15 PM
--- NOTE | 2018-04-26 18:15 | P.PNPAL ---
Reason for Visit Reason for visit: a. To assist with evaluation and management of symptoms including: Confusion, agitation b. To assist medical decision maker(s) with: better understanding of current medical conditions; weighing benefits/burdens of medical treatment options; making medical treatment decisions. Subjective Subjective/Interval History: Patient seen today for follow-up on management of symptoms confusion, agitation and assist family with goals of medical treatment. Patient remains confused, she is trying to climb out of bed stating that she has "2 babies at home needs to get out of here". Her confusion is chronic per my conversation with her , waxing and waning, previously mild now advanced to moderate, constant, modified by Seroquel or Ativan. She is agitated today, screaming loudly at various intervals without any visible stimulus. The severity is mild to moderate, intermittent, screaming lasts up to a minute, not associated with any modifying factors. This was discussed with Dr. Del Cid who is reluctant to give her any sedation as she was so lethargic and obtunded yesterday after receiving 1 mg of intramuscular Ativan on admission severe agitation. . Family/Friend Interactions: Met patient's , Dav, at bedside. Patient was shrieking and threw him out of the room. He states that this is normal behavior for her at home as increased to the level of being unmanageable at this time. He believes she would benefit from shelter placement. He states that he has a neurologist in [place], Dr. Rojas, who feels that in addition to Parkinson's disease, her dementia may be Lewy body rather than Alzheimer's. Reviewed discharge plans , palliative care purpose and focus, CODE STATUS with a thorough explanation of the sequelae of intubation and cardiopulmonary resuscitation. He does not feel that she is appropriate for resuscitation wishes to discuss this with his children prior to requesting a DNR status. Palliative care contact information was provided for any further questions or concerns of the or children. Advance Directives Health Care Surrogate Name and Number: Dav Gallardo Objective Vital Signs: Vital Signs 04/25/18 20:00 04/26/18 00:00 04/26/18 03:52 Temperature 98.6 F 98.5 F 98.2 F Pulse Rate 78 73 65 Respiratory Rate 16 18 18 Blood Pressure 184/89 H 149/72 H 132/63 Pulse Oximetry 98 95 96 04/26/18 08:55 04/26/18 12:27 04/26/18 16:09 Temperature 97.8 F 98.5 F 98.5 F Pulse Rate 69 66 75 Respiratory Rate 20 16 16 Blood Pressure 161/75 H 171/79 H 192/87 H Pulse Oximetry 94 L 99 96 Intake & Output 04/25/18 04/26/18 04/26/18 18:59 06:59 18:59 Intake Total 1000 / 1000 1000 / 1000 Output Total 650 / 650 Balance -650 / -650 1000 / 1000 1000 / 1000 Intake: IV 1000 / 1000 1000 / 1000 NS Inj 1,000 ML @ 84 mls/hr IV. 1000 / 1000 1000 / [id number] [facility] Rx#:[id number] Output: Urine Amount (Catheter) 650 / 650 Indwelling Urethral Catheter 650 / 650 Other: Date of Last Bowel Movement 04/26/18 04/26/18 Physical Exam: CONSTITUTIONAL/GENERAL: This is an adequately nourished patient, awake, agitated , in mild to moderate distress. TUBES/LINES/DRAINS: PIV CARDIOVASCULAR: Regular rate and rhythm without murmurs, gallops, or rubs. No JVD. Peripheral pulses symmetric. RESPIRATORY/CHEST: Symmetric, unlabored respirations. Clear to auscultation. Breath sounds equal bilaterally. No wheezes, rales, or rhonchi. GASTROINTESTINAL: Abdomen soft, non-tender, nondistended. No hepato-splenomegaly , or palpable masses. No guarding. Bowel sounds present. GENITOURINARY: Without palpable bladder distension. MUSCULOSKELETAL: Extremities without clubbing, cyanosis, or edema. No joint tenderness or effusion noted. No calf tenderness. No mottling or clubbing. NEUROLOGICAL: Awake, alert, oriented to self only. Moves all extremities no focal deficits. PSYCHIATRIC: Agitated, screaming, ordered her out of the room. . Diagnostic Tests Laboratory: Laboratory Results - last 72 hr 04/24/18 04/24/18 04/24/18 15:45 15:45 15:45 WBC 9.3 RBC 4.46 Hgb 14.4 Hct 43.7 MCV 98.0 MCH 32.2 MCHC 32.9 RDW 13.1 Plt Count 260 MPV 9.2 Prelim Diff (Auto) Neut % (Auto) 73.6 H Lymph % (Auto) 15.3 [place] % (Auto) 10.6 H Eos % (Auto) 0.3 Baso % (Auto) 0.2 Neut # (Auto) 6.9 Lymph # (Auto) 1.4 [place] # (Auto) 1.0 H Eos # (Auto) 0.0 Baso # (Auto) 0.0 WBC Differential . Diff Scan Differential Comment Auto diff final Platelet Estimate Platelet Morphology PT 10.9 INR 1.1 APTT 24.4 Sodium Potassium Chloride Carbon Dioxide Anion Gap BUN Creatinine Estimated GFR POC Glucose Random Glucose Lactic Acid 2.0 Calcium Total Bilirubin AST ALT Alkaline Phosphatase Ammonia Total Creatine Kinase CK-MB (CK-2) CK-MB (CK-2) % Troponin I Total Protein Albumin TSH Urine Color Urine Clarity Urine pH Ur Specific [place] Urine Protein Urine Glucose (UA) Urine Ketones Urine Occult Blood Urine Nitrate Urine Bilirubin Urine Urobilinogen Ur Leukocyte Esterase Urine RBC Urine WBC Urine Mucus Micro UA Comment Ur Microscopic Review Urine Culture Comments Urine Opiates Screen Ur Barbiturates Screen Ur Amphetamines Screen U Benzodiazepines Scrn Urine Cocaine Screen U Cannabinoids Screen Serum Alcohol 04/24/18 04/24/18 04/24/18 16:00 17:00 18:20 WBC RBC Hgb Hct MCV MCH MCHC RDW Plt Count MPV Prelim Diff (Auto) Neut % (Auto) Lymph % (Auto) [place] % (Auto) Eos % (Auto) Baso % (Auto) Neut # (Auto) Lymph # (Auto) [place] # (Auto) Eos # (Auto) Baso # (Auto) WBC Differential Diff Scan Differential Comment Platelet Estimate Platelet Morphology PT INR APTT Sodium 138 Potassium 3.7 3.5 Chloride 112 H Carbon Dioxide 21.0 Anion Gap 5 BUN 12 Creatinine 0.74 Estimated GFR 75 L POC Glucose Random Glucose 82 Lactic Acid Calcium 7.9 L Total Bilirubin 0.8 AST 28 ALT 24 Alkaline Phosphatase 67 Ammonia Total Creatine Kinase 417 H CK-MB (CK-2) 1.3 CK-MB (CK-2) % 0.3 Troponin I Less than 0.02 L Total Protein 7.4 Albumin 2.9 L TSH 0.429 Urine Color Tori Urine Clarity Clear Urine pH 5.0 Ur Specific [place] 1.025 Urine Protein Negative Urine Glucose (UA) Negative Urine Ketones Trace H Urine Occult Blood Negative Urine Nitrate Negative Urine Bilirubin Negative Urine Urobilinogen 2.0 H Ur Leukocyte Esterase Negative Urine RBC 1 Urine WBC 1 Urine Mucus Few H Micro UA Comment Cath-culture not ind Ur Microscopic Review Not Reportable Urine Culture Comments Cath-cult not ind Urine Opiates Screen Ur Barbiturates Screen Ur Amphetamines Screen U Benzodiazepines Scrn Urine Cocaine Screen U Cannabinoids Screen Serum Alcohol Less than 3 04/24/18 04/24/18 04/24/18 21:20 22:20 22:24 WBC RBC Hgb Hct MCV MCH MCHC RDW Plt Count MPV Prelim Diff (Auto) Neut % (Auto) Lymph % (Auto) [place] % (Auto) Eos % (Auto) Baso % (Auto) Neut # (Auto) Lymph # (Auto) [place] # (Auto) Eos # (Auto) Baso # (Auto) WBC Differential Diff Scan Differential Comment Platelet Estimate Platelet Morphology PT INR APTT Sodium Potassium Chloride Carbon Dioxide Anion Gap BUN Creatinine Estimated GFR POC Glucose 96 Random Glucose Lactic Acid Calcium Total Bilirubin AST ALT Alkaline Phosphatase Ammonia 19 Total Creatine Kinase CK-MB (CK-2) CK-MB (CK-2) % Troponin I Total Protein Albumin TSH Urine Color Urine Clarity Urine pH Ur Specific [place] Urine Protein Urine Glucose (UA) Urine Ketones Urine Occult Blood Urine Nitrate Urine Bilirubin Urine Urobilinogen Ur Leukocyte Esterase Urine RBC Urine WBC Urine Mucus Micro UA Comment Ur Microscopic Review Urine Culture Comments Urine Opiates Screen Neg Ur Barbiturates Screen Neg Ur Amphetamines Screen Neg U Benzodiazepines Scrn Neg Urine Cocaine Screen Neg U Cannabinoids Screen Neg Serum Alcohol 04/25/18 04/25/18 04/25/18 04:30 04:35 06:43 WBC 9.4 RBC 4.04 Hgb 13.4 Hct 39.6 MCV 98.0 MCH 33.1 MCHC 33.8 RDW 13.0 Plt Count 223 MPV 10.5 Prelim Diff (Auto) Slide review pending Neut % (Auto) 63.0 Lymph % (Auto) 24.9 [place] % (Auto) 10.6 H Eos % (Auto) 1.0 Baso % (Auto) 0.5 Neut # (Auto) 5.9 Lymph # (Auto) 2.3 [place] # (Auto) 1.0 H Eos # (Auto) 0.1 Baso # (Auto) 0.0 WBC Differential . Diff Scan Auto diff confirmed Differential Comment . Platelet Estimate Normal Platelet Morphology Normal PT INR APTT Sodium 140 Potassium 3.7 Chloride 112 H Carbon Dioxide 18.3 L Anion Gap 10 BUN 15 Creatinine 0.59 Estimated GFR Greater than 89 POC Glucose 88 Random Glucose 85 Lactic Acid Calcium 8.9 D Total Bilirubin AST ALT Alkaline Phosphatase Ammonia Total Creatine Kinase CK-MB (CK-2) CK-MB (CK-2) % Troponin I Total Protein Albumin TSH Urine Color Urine Clarity Urine pH Ur Specific [place] Urine Protein Urine Glucose (UA) Urine Ketones Urine Occult Blood Urine Nitrate Urine Bilirubin Urine Urobilinogen Ur Leukocyte Esterase Urine RBC Urine WBC Urine Mucus Micro UA Comment Ur Microscopic Review Urine Culture Comments Urine Opiates Screen Ur Barbiturates Screen Ur Amphetamines Screen U Benzodiazepines Scrn Urine Cocaine Screen U Cannabinoids Screen Serum Alcohol 04/26/18 08:51 WBC RBC Hgb Hct MCV MCH MCHC RDW Plt Count MPV Prelim Diff (Auto) Neut % (Auto) Lymph % (Auto) [place] % (Auto) Eos % (Auto) Baso % (Auto) Neut # (Auto) Lymph # (Auto) [place] # (Auto) Eos # (Auto) Baso # (Auto) WBC Differential Diff Scan Differential Comment Platelet Estimate Platelet Morphology PT INR APTT Sodium 142 Potassium 3.2 L Chloride 111 H Carbon Dioxide 20.6 L Anion Gap 10 BUN 12 Creatinine 0.47 L Estimated GFR Greater than 89 POC Glucose Random Glucose 82 Lactic Acid Calcium 8.5 Total Bilirubin AST ALT Alkaline Phosphatase Ammonia Total Creatine Kinase CK-MB (CK-2) CK-MB (CK-2) % Troponin I Total Protein Albumin TSH Urine Color Urine Clarity Urine pH Ur Specific [place] Urine Protein Urine Glucose (UA) Urine Ketones Urine Occult Blood Urine Nitrate Urine Bilirubin Urine Urobilinogen Ur Leukocyte Esterase Urine RBC Urine WBC Urine Mucus Micro UA Comment Ur Microscopic Review Urine Culture Comments Urine Opiates Screen Ur Barbiturates Screen Ur Amphetamines Screen U Benzodiazepines Scrn Urine Cocaine Screen U Cannabinoids Screen Serum Alcohol Result Diagrams: 04/25/18 04:30 04/26/18 08:51 Imaging: Cervical Spine CT 04/24/18 14:18 CONCLUSION: 1. Degenerative changes without fracture/subluxation. Chest X-Ray 04/24/18 14:18 CONCLUSION: No acute intrathoracic disease. Forearm X-Ray 04/24/18 14:18 CONCLUSION: Unremarkable exam for patient's age. Head CT 04/24/18 14:18 CONCLUSION: 1. No acute intracranial abnormality. . Wrist X-Ray 04/24/18 14:18 CONCLUSION: There is osteopenia and some mild degenerative changes involving the first carpometacarpal joint. No acute fracture or joint dislocation. Head MRI 04/25/18 00:00 CONCLUSION: 1. Examination is significantly degraded by motion. 2. No gross abnormality observed. Assessment and Plan Pertinent Non-Medical Issues: Psychosocial: She lives in [place] with her and son, who both provide care for her. 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 Ethical issues impacting care: None noted. . Important Contacts: : Dav Gallardo , Son: Matt . Prognosis: This is an 82-year-old female with a history of Parkinson's disease as well as Alzheimer's dementia. She is experiencing a trajectory of decline with frequent episodes of frustration, agitation alternating with lethargy. Her appetite is currently stable but she is not drinking liquid and appeared dehydrated on admission. She has had episodes of pneumonia which may indicate aspiration. As both Alzheimer's dementia and Parkinson's disease carry a terminal diagnosis, her long-term prognosis is guarded. Code Status: Full Code (By default) Plan: PLAN: Legal decision maker: Patient is not capacitated medical decision making and it is uncertain whether she will regain that capacity. Per her healthcare surrogate, her , Dav, is the healthcare surrogate. By [place] statutes he would also be the healthcare proxy. Goals: To be determined CODE STATUS: FULL CODE by default pending family review and decision. SYMPTOMS: * Confusion: She remains confused per psychiatry evaluation. This has been an intermittent problem per family. She has been on Namzaric and is followed by a neurologist who opines that she may have Lewy body dementia rather than Alzheimer's, in addition to consents disease. She will need shelter placement. Family is requesting the [place] area. * Agitation: Very agitated today, screaming out intervals with no noted trigger , ordering her out of the room. He complies because he states otherwise she will start cursing and become verbally abusive. She was previously on Seroquel, 50 mg at night which he stated gave some relief from her symptoms but was recommended to give her 12.5 mg in the a.m. previously, which resulted in her sleeping all day. He did state that she tolerated low- dose Xanax previously with fair reduction of her symptoms. Due to her extreme lethargy yesterday after 1 mg of Ativan, Dr. Del Cid wants to proceed slowly with up titration. Discussed with him. Palliative care will continue to follow the patient during hospital course as condition evolves, to assist patient/decision-maker with understanding of their medical conditions, weighing benefits/burdens of treatment options, for clarification of goals of treatment. Additionally will assist with any symptoms of palliative concern. . Attestation Attestation: To help prompt me to consider important information that might be impacting today's encounter and assessment, information from prior notes written by myself or my colleagues may have been "brought forward" into today's note. My signature on this note, however, is an attestation that I personally performed the exam, history, and/or decision-making noted today, and, unless otherwise indicated, the interactions with patient, family, and staff as well as the review of records all occurred today. I also attest that the listed assessment and stated plan reflect my best clinical judgment today based on the combination of historical information, prior notes, and today's exam/ interactions. When time spent is documented, it refers only to time spent today by the signer, or if indicated, combined time spent today by collaborating physician/nurse practitioner. .
--- NOTE | 2018-04-26 19:06 | P.PNNEU ---
Subjective Subjective Comments: no new c/o. Active Medications: Active Medications Acetaminophen (Tylenol) 650 mg PO Q4H PRN PRN Reason: Temp > 100.4 Al Hydroxide/Mg Hydroxide (Milk Of Magnesia Liq) 30 ml PO Q12H PRN PRN Reason: Mild Constipation Aspirin (Ecotrin) 81 mg PO HS [facility] Last Admin: 04/25/18 21:46 Dose: 81 mg Bisacodyl (Dulcolax Supp) 10 mg RECTAL DAILY PRN PRN Reason: SEVERE CONSITIPATION Carbidopa/Levodopa (Sinemet Cr 50/200 Mg) 1 tab PO Q8H [facility] Last Admin: 04/26/18 14:27 Dose: 1 tab Fenofibrate (Tricor) 145 mg PO DAILY [facility] Last Admin: 04/26/18 10:28 Dose: 145 mg Heparin Sodium (Porcine) (Heparin Inj) 5,000 units SQ Q12H [facility] Last Admin: 04/26/18 10:27 Dose: 5,000 units Sodium Chloride (Ns Inj) 1,000 mls @ 84 mls/hr IV.CONT .[id number] [facility] Last Admin: 04/26/18 12:23 Dose: 84 mls/hr Lactulose (Lactulose Liq) 30 ml PO DAILY PRN PRN Reason: SEVERE CONSITIPATION Levothyroxine Sodium (Synthroid) 125 mcg PO DAILY@0600 [facility] Last Admin: 04/26/18 06:39 Dose: 125 mcg Ondansetron HCl (Zofran Inj) 4 mg IV.PUSH Q6H PRN PRN Reason: NAUSEA OR VOMITING Quetiapine Fumarate (Seroquel) 50 mg PO [facility] Last Admin: 04/25/18 21:45 Dose: 50 mg Senna/Docusate Sodium (Afsaneh-Colace) 1 tab PO BID [facility] Last Admin: 04/26/18 10:27 Dose: 1 tab Sennosides (Senokot) 17.2 mg PO Q12H PRN PRN Reason: Moderate Constipation Sodium Chloride (Ns Flush) 2 ml IV.FLUSH BID [facility] Last Admin: 04/26/18 10:28 Dose: Not Given Sodium Chloride (Ns Flush) 2 ml IV.FLUSH PRN PRN PRN Reason: FLUSH AFTER USING IV ACCESS Tolterodine Tartrate (Detrol La) 4 mg PO DAILY [facility] Last Admin: 04/26/18 10:28 Dose: 4 mg Venlafaxine HCl (Effexor Xr) 150 mg PO HS [facility] Last Admin: 04/25/18 21:45 Dose: 150 mg Allergies/Adverse Reactions: Allergies Allergy/AdvReac Type Severity Reaction Status Date / Time No Known Allergies Allergy Verified 04/24/18 14:36 Physical Exam Vital signs: Vital Signs 04/25/18 20:00 04/26/18 00:00 04/26/18 03:52 Temperature 98.6 F 98.5 F 98.2 F Pulse Rate 78 73 65 Respiratory Rate 16 18 18 Blood Pressure 184/89 H 149/72 H 132/63 Pulse Oximetry 98 95 96 04/26/18 08:55 04/26/18 12:27 04/26/18 16:09 Temperature 97.8 F 98.5 F 98.5 F Pulse Rate 69 66 75 Respiratory Rate 20 16 16 Blood Pressure 161/75 H 171/79 H 192/87 H Pulse Oximetry 94 L 99 96 Intake & Output 04/26/18 04/26/18 04/27/18 06:59 18:59 06:59 Intake Total 1000 / 1000 1000 / 1000 Balance 1000 / 1000 1000 / 1000 Intake: IV 1000 / 1000 1000 / 1000 NS Inj 1,000 ML @ 84 mls/hr IV. 1000 / 1000 1000 / 1000 CONT .[id number] [facility] Rx#:[id number] Other: Date of Last Bowel Movement 04/26/18 04/26/18 - Routine Neurological Exam alert, disoriented, follow commands, poor recent memory CN intact MOTOR 5/5 BUE - Urinary Catheter Management Indwelling Urethral Catheter Cath placed during this visit: yes Reason for continuing: Hourly intake/output Insertion date: 04/24/18 Insertion time: 18:43 Objective Laboratory Results - last 24 hr 04/26/18 08:51 Sodium 142 Potassium 3.2 L Chloride 111 H Carbon Dioxide 20.6 L Anion Gap 10 BUN 12 Creatinine 0.47 L Estimated GFR Greater than 89 Random Glucose 82 Calcium 8.5 Review/Management - Diagnosis (1) Altered mental status Code(s): R41.82 - Altered mental status, unspecified Status: Acute Current Visit: Yes - Review/Management Plan: Parkinsons dementia. Appears improved with seroquel 50 mg HS (1) Altered mental status Qualifiers: Altered mental status type: unspecified Qualified Code(s): R41.82 - Altered mental status, unspecified
[2018-04-26] MEDS: Venlafaxine XR 75 MG Capsule PO SCH (20:14)
[2018-04-26] MEDS: QUEtiapine 25 MG Tablet PO SCH (20:14)
[2018-04-27] MEDS: Sod Chloride 0.9% Inj 1,000 ML IV.CONT SCH ×3 (00:30→10:34)
[2018-04-27] MEDS: Levothyroxine 125 MCG Tablet PO SCH (05:41)
[2018-04-27] MEDS: Carbidopa/Levodopa CR 50/200 MG Tablet PO SCH ×2 (05:41→16:36)
[2018-04-27] MEDS: Senna/Docusate Sodium 8.6/50 MG Tablet PO SCH (10:33)
[2018-04-27] MEDS: Fenofibrate 145 MG Tablet PO SCH (10:33)
[2018-04-27] MEDS: Tolterodine Tartrate LA 4 MG Capsule PO SCH (10:33)
[2018-04-27] MEDS: Sodium Chloride 0.9% 2 ML Flush BID IV.FLUSH SCH (10:34)
[2018-04-27] MEDS: Heparin - SQ 10,000 UNITS/ML Vial SQ SCH (10:34)
--- NOTE | 2018-04-27 12:04 | P.PNIM ---
Subjective Interval history: f/u; encephalopathy very lethargic today. opens the eyes to calling her name. otherwise in no acute distress. at the bedside. Physical Exam Vital signs: Vital Signs 04/26/18 12:27 04/26/18 16:09 04/27/18 00:00 Temperature 98.5 F 98.5 F Pulse Rate 66 75 84 Respiratory Rate 16 16 18 Blood Pressure 171/79 H 192/87 H Pulse Oximetry 99 96 98 04/27/18 03:27 04/27/18 08:00 Temperature 98.1 F 98.1 F Pulse Rate 91 H 93 H Respiratory Rate 18 18 Blood Pressure 175/83 H 167/81 H Pulse Oximetry 97 97 Intake & Output 04/26/18 04/27/18 04/27/18 18:59 06:59 18:59 Intake Total 1000 / 1000 1000 / 1000 Balance 1000 / 1000 1000 / 1000 Intake: IV 1000 / 1000 1000 / 1000 NS Inj 1,000 ML @ 84 mls/hr IV. 1000 / 1000 1000 / 1000 CONT .[id number] [facility] Rx#:[id number] Other: Date of Last Bowel Movement 04/26/18 04/26/18 - Constitutional no acute distress - Routine Respiratory Exam Present: CTA bilaterally - Routine Cardiovascular Exam Present: RRR - Routine Abdominal Exam Present: soft - Routine Extremities Exam Comments: no pedal edema. - Routine Neurological Exam lethargic- opens the eyes to calling her name. - Urinary Catheter Management Indwelling Urethral Catheter Cath placed during this visit: yes Reason for continuing: Hourly intake/output Insertion date: 04/24/18 Insertion time: 18:43 Results - Labs CBC & Chem 7: 04/25/18 04:30 04/26/18 08:51 Assessment and Plan - Plan 1. acute encephalopathy- with Parkinson's/dementia as the background Head CT, chest x-ray, UA negative Electrolytes within normal limits Brain MRI with no gross abnormality. EEG with encephalopathic process and no epileptic activity. neurology consult appreciated. 2. Suicidal ideation Per report, the patient stated that she wanted to get a gun and kill herself Hough act lifted per psych. 3. Right arm injury Secondary to fall X-rays negative 4. Dementia/Parkinson's disease Continue home medications neurology consult appreciated. 5. Hypothyroidism TSH within normal limits Continue home Synthroid 6- questionable dysphagia; consulted [facility] Cardiac diet Electrolytes: Monitor and replete as needed Heparin consulted PT. d/w the at length; hospice was offered which he's going to think about. palliative care following. Discharge Planning: very lethargic today and not ready for discharge. hospice was d/w the . palliative care following.
--- NOTE | 2018-04-27 13:32 | P.PNPAL ---
Reason for Visit Reason for visit: a. To assist with evaluation and management of symptoms including: Confusion, agitation b. To assist medical decision maker(s) with: better understanding of current medical conditions; weighing benefits/burdens of medical treatment options; making medical treatment decisions. Subjective Subjective/Interval History: Patient seen today for follow-up on management of symptoms confusion, agitation and assist family with goals of medical treatment. Patient seen lying in bed, crying, writhing on the sheets, not communicating. She does not open her eyes but continues to moan and is tearful. Speech therapy attempted to do a swallow evaluation, however the patient was unable to follow directions and would not open her eyes. Per Dr. Addison's note, patient has Parkinson's dementia. Her regular neurologist, Dr. Rojas, opines possible Lewy body dementia versus Alzheimer's as well as Parkinson's. At this time she is not eating or drinking but is receiving IV fluid. She is refusing medications. Her is at the bedside trying to calm and console her with no success. Her confusion is moderate to severe, constant, occurs without relationship to external events, slightly modified by benzodiazepines, she appears oriented to self only. She is moderately agitated, attempting to get out of bed, and thrashing her arms and legs on the bed. She remained too agitated to attempt swallow evaluation without increased risk of aspiration. In addition to the thrashing she is also sobbing but no complaint can be elicited. She declines to answer either staff or her regarding pain, sadness, anxiety or any other discomfort. She just continues to thrash and cry. . Family/Friend Interactions: I spoke with her at length regarding placement and goals of medical treatment. I also attended a meeting with patient's and Dr. Del Cid who is recommending hospice care. He contends that bringing the patient back to the hospital when there are no medical interventions available to her would disturb her quality of life with no discernible benefit. The agreed to a hospice information consult and has made the patient a DO NOT RESUSCITATE status. Placement options are being explored as the patient is medically stable for discharge. She would likely benefit from a short stay at the [facility] for stabilization of symptoms of agitation. . Advance Directives Health Care Surrogate Name and Number: Dav Gallardo Objective Vital Signs: Vital Signs 04/26/18 16:09 04/27/18 00:00 04/27/18 03:27 Temperature 98.5 F 98.1 F Pulse Rate 75 84 91 H Respiratory Rate 16 18 18 Blood Pressure 192/87 H 175/83 H Pulse Oximetry 96 98 97 04/27/18 08:00 Temperature 98.1 F Pulse Rate 93 H Respiratory Rate 18 Blood Pressure 167/81 H Pulse Oximetry 97 Intake & Output 04/26/18 04/27/18 04/27/18 18:59 06:59 18:59 Intake Total 1000 / 1000 1000 / 1000 Balance 1000 / 1000 1000 / 1000 Intake: IV 1000 / 1000 1000 / 1000 NS Inj 1,000 ML @ 84 mls/hr IV. 1000 / 1000 1000 / 1000 CONT .[id number] [facility] Rx#:[id number] Other: Date of Last Bowel Movement 04/26/18 04/26/18 Physical Exam: CONSTITUTIONAL/GENERAL: This is an adequately nourished patient, awake, agitated , in moderate distress. TUBES/LINES/DRAINS: PIV CARDIOVASCULAR: Regular rate and rhythm without murmurs, gallops, or rubs. No JVD. Peripheral pulses symmetric. RESPIRATORY/CHEST: Symmetric, unlabored respirations. Clear to auscultation. Breath sounds equal bilaterally. No wheezes, rales, or rhonchi. GASTROINTESTINAL: Abdomen soft, non-tender, nondistended. No hepato-splenomegaly , or palpable masses. No guarding. Bowel sounds present. GENITOURINARY: Without palpable bladder distension. MUSCULOSKELETAL: Extremities without clubbing, cyanosis, or edema. No joint tenderness or effusion noted. No calf tenderness. No mottling or clubbing. NEUROLOGICAL: Lethargic, moaning, crying, thrashing, oriented to self only. Moves all extremities. PSYCHIATRIC: Agitated, moaning, crying, inconsolable. . Diagnostic Tests Laboratory: Laboratory Results - last 72 hr 04/24/18 04/24/18 04/24/18 15:45 15:45 15:45 WBC 9.3 RBC 4.46 Hgb 14.4 Hct 43.7 MCV 98.0 MCH 32.2 MCHC 32.9 RDW 13.1 Plt Count 260 MPV 9.2 Prelim Diff (Auto) Neut % (Auto) 73.6 H Lymph % (Auto) 15.3 [place] % (Auto) 10.6 H Eos % (Auto) 0.3 Baso % (Auto) 0.2 Neut # (Auto) 6.9 Lymph # (Auto) 1.4 [place] # (Auto) 1.0 H Eos # (Auto) 0.0 Baso # (Auto) 0.0 WBC Differential . Diff Scan Differential Comment Auto diff final Platelet Estimate Platelet Morphology PT 10.9 INR 1.1 APTT 24.4 Sodium Potassium Chloride Carbon Dioxide Anion Gap BUN Creatinine Estimated GFR POC Glucose Random Glucose Lactic Acid 2.0 Calcium Total Bilirubin AST ALT Alkaline Phosphatase Ammonia Total Creatine Kinase CK-MB (CK-2) CK-MB (CK-2) % Troponin I Total Protein Albumin TSH Urine Color Urine Clarity Urine pH Ur Specific [place] Urine Protein Urine Glucose (UA) Urine Ketones Urine Occult Blood Urine Nitrate Urine Bilirubin Urine Urobilinogen Ur Leukocyte Esterase Urine RBC Urine WBC Urine Mucus Micro UA Comment Ur Microscopic Review Urine Culture Comments Urine Opiates Screen Ur Barbiturates Screen Ur Amphetamines Screen U Benzodiazepines Scrn Urine Cocaine Screen U Cannabinoids Screen Serum Alcohol 04/24/18 04/24/18 04/24/18 16:00 17:00 18:20 WBC RBC Hgb Hct MCV MCH MCHC RDW Plt Count MPV Prelim Diff (Auto) Neut % (Auto) Lymph % (Auto) [place] % (Auto) Eos % (Auto) Baso % (Auto) Neut # (Auto) Lymph # (Auto) [place] # (Auto) Eos # (Auto) Baso # (Auto) WBC Differential Diff Scan Differential Comment Platelet Estimate Platelet Morphology PT INR APTT Sodium 138 Potassium 3.7 3.5 Chloride 112 H Carbon Dioxide 21.0 Anion Gap 5 BUN 12 Creatinine 0.74 Estimated GFR 75 L POC Glucose Random Glucose 82 Lactic Acid Calcium 7.9 L Total Bilirubin 0.8 AST 28 ALT 24 Alkaline Phosphatase 67 Ammonia Total Creatine Kinase 417 H CK-MB (CK-2) 1.3 CK-MB (CK-2) % 0.3 Troponin I Less than 0.02 L Total Protein 7.4 Albumin 2.9 L TSH 0.429 Urine Color Tori Urine Clarity Clear Urine pH 5.0 Ur Specific [place] 1.025 Urine Protein Negative Urine Glucose (UA) Negative Urine Ketones Trace H Urine Occult Blood Negative Urine Nitrate Negative Urine Bilirubin Negative Urine Urobilinogen 2.0 H Ur Leukocyte Esterase Negative Urine RBC 1 Urine WBC 1 Urine Mucus Few H Micro UA Comment Cath-culture not ind Ur Microscopic Review Not Reportable Urine Culture Comments Cath-cult not ind Urine Opiates Screen Ur Barbiturates Screen Ur Amphetamines Screen U Benzodiazepines Scrn Urine Cocaine Screen U Cannabinoids Screen Serum Alcohol Less than 3 04/24/18 04/24/18 04/24/18 21:20 22:20 22:24 WBC RBC Hgb Hct MCV MCH MCHC RDW Plt Count MPV Prelim Diff (Auto) Neut % (Auto) Lymph % (Auto) [place] % (Auto) Eos % (Auto) Baso % (Auto) Neut # (Auto) Lymph # (Auto) [place] # (Auto) Eos # (Auto) Baso # (Auto) WBC Differential Diff Scan Differential Comment Platelet Estimate Platelet Morphology PT INR APTT Sodium Potassium Chloride Carbon Dioxide Anion Gap BUN Creatinine Estimated GFR POC Glucose 96 Random Glucose Lactic Acid Calcium Total Bilirubin AST ALT Alkaline Phosphatase Ammonia 19 Total Creatine Kinase CK-MB (CK-2) CK-MB (CK-2) % Troponin I Total Protein Albumin TSH Urine Color Urine Clarity Urine pH Ur Specific [place] Urine Protein Urine Glucose (UA) Urine Ketones Urine Occult Blood Urine Nitrate Urine Bilirubin Urine Urobilinogen Ur Leukocyte Esterase Urine RBC Urine WBC Urine Mucus Micro UA Comment Ur Microscopic Review Urine Culture Comments Urine Opiates Screen Neg Ur Barbiturates Screen Neg Ur Amphetamines Screen Neg U Benzodiazepines Scrn Neg Urine Cocaine Screen Neg U Cannabinoids Screen Neg Serum Alcohol 04/25/18 04/25/18 04/25/18 04:30 04:35 06:43 WBC 9.4 RBC 4.04 Hgb 13.4 Hct 39.6 MCV 98.0 MCH 33.1 MCHC 33.8 RDW 13.0 Plt Count 223 MPV 10.5 Prelim Diff (Auto) Slide review pending Neut % (Auto) 63.0 Lymph % (Auto) 24.9 [place] % (Auto) 10.6 H Eos % (Auto) 1.0 Baso % (Auto) 0.5 Neut # (Auto) 5.9 Lymph # (Auto) 2.3 [place] # (Auto) 1.0 H Eos # (Auto) 0.1 Baso # (Auto) 0.0 WBC Differential . Diff Scan Auto diff confirmed Differential Comment . Platelet Estimate Normal Platelet Morphology Normal PT INR APTT Sodium 140 Potassium 3.7 Chloride 112 H Carbon Dioxide 18.3 L Anion Gap 10 BUN 15 Creatinine 0.59 Estimated GFR Greater than 89 POC Glucose 88 Random Glucose 85 Lactic Acid Calcium 8.9 D Total Bilirubin AST ALT Alkaline Phosphatase Ammonia Total Creatine Kinase CK-MB (CK-2) CK-MB (CK-2) % Troponin I Total Protein Albumin TSH Urine Color Urine Clarity Urine pH Ur Specific [place] Urine Protein Urine Glucose (UA) Urine Ketones Urine Occult Blood Urine Nitrate Urine Bilirubin Urine Urobilinogen Ur Leukocyte Esterase Urine RBC Urine WBC Urine Mucus Micro UA Comment Ur Microscopic Review Urine Culture Comments Urine Opiates Screen Ur Barbiturates Screen Ur Amphetamines Screen U Benzodiazepines Scrn Urine Cocaine Screen U Cannabinoids Screen Serum Alcohol 04/26/18 08:51 WBC RBC Hgb Hct MCV MCH MCHC RDW Plt Count MPV Prelim Diff (Auto) Neut % (Auto) Lymph % (Auto) [place] % (Auto) Eos % (Auto) Baso % (Auto) Neut # (Auto) Lymph # (Auto) [place] # (Auto) Eos # (Auto) Baso # (Auto) WBC Differential Diff Scan Differential Comment Platelet Estimate Platelet Morphology PT INR APTT Sodium 142 Potassium 3.2 L Chloride 111 H Carbon Dioxide 20.6 L Anion Gap 10 BUN 12 Creatinine 0.47 L Estimated GFR Greater than 89 POC Glucose Random Glucose 82 Lactic Acid Calcium 8.5 Total Bilirubin AST ALT Alkaline Phosphatase Ammonia Total Creatine Kinase CK-MB (CK-2) CK-MB (CK-2) % Troponin I Total Protein Albumin TSH Urine Color Urine Clarity Urine pH Ur Specific [place] Urine Protein Urine Glucose (UA) Urine Ketones Urine Occult Blood Urine Nitrate Urine Bilirubin Urine Urobilinogen Ur Leukocyte Esterase Urine RBC Urine WBC Urine Mucus Micro UA Comment Ur Microscopic Review Urine Culture Comments Urine Opiates Screen Ur Barbiturates Screen Ur Amphetamines Screen U Benzodiazepines Scrn Urine Cocaine Screen U Cannabinoids Screen Serum Alcohol Result Diagrams: 04/25/18 04:30 04/26/18 08:51 Assessment and Plan Pertinent Non-Medical Issues: Psychosocial: She lives in [place] with her and son, who both provide care for her. Spiritual: Parliamentary Archivist available Legal: Living will and healthcare surrogate on the chart. Ethical issues impacting care: None noted. . Important Contacts: : Dav Gallardo , Son: Matt . Prognosis: This is an 82-year-old female with a history of Parkinson's disease as well as Alzheimer's dementia. She is experiencing a trajectory of decline with frequent episodes of frustration, agitation alternating with lethargy. Her appetite is currently stable but she is not drinking liquid and appeared dehydrated on admission. She has had episodes of pneumonia which may indicate aspiration. As both Alzheimer's dementia and Parkinson's disease carry a terminal diagnosis, her long-term prognosis is guarded. Code Status: No Code DNR Plan: PLAN: Legal decision maker: Patient is not capacitated medical decision making and it is uncertain whether she will regain that capacity. Per her healthcare surrogate, her , Dav, is the healthcare surrogate. By [place] statutes he would also be the healthcare proxy. Goals: Comfort oriented CODE STATUS: DO NOT RESUSCITATE SYMPTOMS: * Confusion: She remains confused per psychiatry evaluation. This has been an intermittent problem per family. They state they have not seen this level of confusion at home she has been on Namzaric and is followed by a neurologist who opines that she may have Lewy body dementia rather than Alzheimer's, in addition to consents disease. [place]. Family is requesting the [place] area. Hospice consult is pending. * Agitation: Very agitated today, moaning, crying, not communicating. She was previously on Seroquel, 50 mg at night which he stated gave some relief from her symptoms but is now refusing to take pills. He did state that she tolerated low-dose Xanax previously with fair reduction of her symptoms. She received 0.5 mg Ativan IV last night as she refused Seroquel and was agitated. Given her diagnosis of Parkinson's dementia with possibility of Lewy body dementia she may be an appropriate hospice admission with a short stay in the [facility] for stabilization of her agitation. Palliative care will continue to follow the patient during hospital course as condition evolves, to assist patient/decision-maker with understanding of their medical conditions, weighing benefits/burdens of treatment options, for clarification of goals of treatment. Additionally will assist with any symptoms of palliative concern. . Attestation Attestation: To help prompt me to consider important information that might be impacting today's encounter and assessment, information from prior notes written by myself or my colleagues may have been "brought forward" into today's note. My signature on this note, however, is an attestation that I personally performed the exam, history, and/or decision-making noted today, and, unless otherwise indicated, the interactions with patient, family, and staff as well as the review of records all occurred today. I also attest that the listed assessment and stated plan reflect my best clinical judgment today based on the combination of historical information, prior notes, and today's exam/ interactions. When time spent is documented, it refers only to time spent today by the signer, or if indicated, combined time spent today by collaborating physician/nurse practitioner. .
--- NOTE | 2018-04-27 14:13 | P.DS ---
Date of admission: 04/24/18 19:19 Primary care physician: German Sagastume Brief History from admission: 82-year-old female with a past medical history significant for Alzheimer's disease, anxiety, dementia, depression, hypothyroidism and Parkinson's disease presents to the emergency department under [place] act for altered mental status. According to emergency department documentation, the patient fell out of bed last night while sleeping and remained on the floor throughout the night as her elderly was unable to get her off the floor. The patient is normally slightly confused but over the past 2-3 days it has been much worse than normal. The patient's reports that the patient had a fall a couple of days ago where she injured her right arm. Per nursing report, the patient will scream loudly if her right arm is touched or moved. X-rays negative. At the time of our interview, the patient is status post Ativan and unable to answer any questions. DS: Summary Hospital Course: patient was admitted with altered mental status and suicidal ideation. MRI brain with no acute abnormality. neurology and psych consults were obtained. hough act was lifted. palliative care was consulted. after a few d/w the , he decided to proceed with hospice. she will be discharged to hospice. - Time Spent with Patient Total time spent providing and/or coordinating discharge services: Greater than 30 minutes (35 min.) Exam Vital signs: Vital Signs 04/26/18 16:09 04/27/18 00:00 04/27/18 03:27 Temperature 98.5 F 98.1 F Pulse Rate 75 84 91 H Respiratory Rate 16 18 18 Blood Pressure 192/87 H 175/83 H Pulse Oximetry 96 98 97 04/27/18 08:00 Temperature 98.1 F Pulse Rate 93 H Respiratory Rate 18 Blood Pressure 167/81 H Pulse Oximetry 97 Intake & Output 04/26/18 04/27/18 04/27/18 18:59 06:59 18:59 Intake Total 1000 / 1000 1000 / 1000 Balance 1000 / 1000 1000 / 1000 Intake: IV 1000 / 1000 1000 / 1000 NS Inj 1,000 ML @ 84 mls/hr IV. 1000 / 1000 1000 / 1000 CONT .[id number] Rx#:[id number] Other: Date of Last Bowel Movement 04/26/18 04/26/18 - Constitutional no acute distress - Routine Respiratory Exam Present: CTA bilaterally - Routine Cardiovascular Exam Present: RRR - Routine Abdominal Exam Present: soft - Routine Extremities Exam Comments: no pedal edema. - Routine Neurological Exam lethargic. Results Procedures completed during hospitalization: none. - Impressions ITS Impressions Cervical Spine CT 04/24/18 14:18 CONCLUSION: 1. Degenerative changes without fracture/subluxation. Chest X-Ray 04/24/18 14:18 CONCLUSION: No acute intrathoracic disease. Forearm X-Ray 04/24/18 14:18 CONCLUSION: Unremarkable exam for patient's age. Head CT 04/24/18 14:18 CONCLUSION: 1. No acute intracranial abnormality. . Wrist X-Ray 04/24/18 14:18 CONCLUSION: There is osteopenia and some mild degenerative changes involving the first carpometacarpal joint. No acute fracture or joint dislocation. Head MRI 04/25/18 00:00 CONCLUSION: 1. Examination is significantly degraded by motion. 2. No gross abnormality observed. Discharge Plan - Discharge Disposition Patient Disposition: 51 Hospice/Med Facility - Discharge Condition Condition: Serious - Discharge Order Discharge Orders: Discharge Order (Routine); Ordered 04/27/18 Ordered By: Vick Del Cid - Physicians Team Primary Care Provider: German Sagastume Attending Provider: Vick Del Cid Other Providers: Matt Addison MD, PhD ; Bennett Agosto MD ; Dwaine Chang MD ; [facility]
--- NOTE | 2018-04-27 14:15 | P.PNADD ---
Addendum to Inpatient Note Reason for Addendum: Additional Documentation (after my lengthy d/w the and the d/w the palliative care, the decided to proceed with the hospice. patient will be discharged to hospice- time spent on discharge 35 min.)
== END 2018-04-27 17:48 | disposition hospice, inpatient (51) ==
LOC: NEPD 14:06 → NEDA 14:06 → NEPGCP 20:11
PROVIDERS: ADMIT Internal Medicine; ATTEND Internal Medicine
DX: F32.9 Major depressive disorder, single episode, unspecified; N39.0 Urinary tract infection, site not specified; E03.9 Hypothyroidism, unspecified; W06.XXXA Fall from bed, initial encounter; E78.5 Hyperlipidemia, unspecified; R45.851 Suicidal ideations; Z66 Do not resuscitate; K21.9 Gastro-esophageal reflux disease without esophagitis; M86.9 Osteomyelitis, unspecified; F02.80 Dementia in other diseases classified elsewhere, unspecified severity, without behavioral disturbance, psychotic disturbance, mood disturbance, and anxiety; G20 Parkinson's disease; M85.80 Other specified disorders of bone density and structure, unspecified site; G30.9 Alzheimer's disease, unspecified; G93.40 Encephalopathy, unspecified; Z86.711 Personal history of pulmonary embolism; I48.0 Paroxysmal atrial fibrillation